=== PATIENT | female | born 1970 | race Caucasian/White ===

== ENCOUNTER → 2020-07-19 14:29 | Outpatient (CLI) | payer BC, SELFPAY ==
--- NOTE | ~2020-07-19 | MM_ITS ---
EXAMINATION: MM screening [facility] BI w chinmay HISTORY: Screening TECHNIQUE: Craniocaudal and mediolateral oblique 3-D tomosynthesis images were obtained and synthetic 2-D images were generated. CAD analysis was submitted and interpreted. COMPARISON: Comparison to multiple prior studies sequentially, with oldest reviewed study dated 03/06. BREAST PARENCHYMAL COMPOSITION: There are scattered areas of fibroglandular density. FINDINGS: There is no evidence of suspicious mass, calcification, or architectural distortion to sugg est malignancy in either breast. There has been no suspicious interval change. IMPRESSION: 1. No mammographic evidence of malignancy. 2. Recommend routine screening mammography in one year. BI-RADS Category 1: Negative Reviewed, dictated and finalized at location A.
== END ==
PROVIDERS: Visit Provider Nurse Practitioner
DX: Z12.31 Encounter for screening mammogram for malignant neoplasm of breast (principal)
CPT/HCPCS: 77063; 77067

== ENCOUNTER → 2021-07-30 17:41 | Outpatient (CLI) | payer OTHER, SELFPAY ==
--- NOTE | ~2021-07-30 | MM_ITS ---
EXAMINATION: MM screening [facility] BI w chinmay HISTORY: Screening TECHNIQUE: Craniocaudal and mediolateral oblique 3-D tomosynthesis images were obtained and synthetic 2-D images were generated. CAD analysis was submitted and interpreted. COMPARISON: Comparison to multiple prior studies sequentially, with oldest reviewed study dated 03/06. BREAST PARENCHYMAL COMPOSITION: There are scattered areas of fibroglandular density. FINDINGS: There is no evidence of suspicious mass, calcification, or architectural distortion to sugg est malignancy in either breast. There has been no suspicious interval change. IMPRESSION: 1. No mammographic evidence of malignancy. 2. Recommend routine screening mammography in one year. BI-RADS Category 1: Negative Reviewed, dictated and finalized at location A.
== END ==
PROVIDERS: Visit Provider Nurse Practitioner
DX: Z12.31 Encounter for screening mammogram for malignant neoplasm of breast (principal)
CPT/HCPCS: 77063; 77067

== ENCOUNTER → 2021-12-03 08:45 | Outpatient (CLI) | payer BC, SELFPAY ==
--- NOTE | ~2021-12-03 | MR_ITS ---
EXAMINATION: MR knee LT wo con DATE: 12/03/2021 09:46 INDICATION: Lateral left knee pain radiating up the leg TECHNIQUE: Magnetic resonance imaging (MRI) of the left knee was performed without intravenous contra st. Sequences included coronal PD-weighted FSE, coronal PD-weighted FS FSE, sagittal T2-weighted FSE , sagittal PD-weighted FS FSE and axial PD weighted fat saturated FSE. COMPARISON: None. FINDINGS: Medial compartment: Medial meniscus is normal. Articular cartilage is normal. Lateral compartment: Small horizontal tear at the body of the lateral meniscus extending to the articular surface near the inner free edge and without definitive extension beyond the inner third of the meniscus. Articular c artilage is normal. Patellofemoral compartment: Deep chondral fissuring involving greater than 50% the cartilage thickness but without degenerative s ubchondral changes at the medial patellar facet, apical ridge and medial side of the lateral facet. D eep chondral ulceration with underlying mild cortical irregularity and subarticular marrow signal saurav nges at the inferior aspect of the medial trochlea and without degenerative subchondral changes at th e trochlear groove and medial margin of the lateral trochlea. Ligaments and tendons: Posterior cruciate ligament is normal. There are couple small likely intrasubstance ganglion cysts ex tending lateral side intact. Linear low signal intensity ligament fibers of the anterior cruciate lig ament follows a normal course relative to Blumensaat line with no evident ligament tear. Mild edema along the superficial margin of the otherwise normal-appearing proximal medial collateral ligament wh ich could be seen with low-grade sprain. The fibular collateral ligament complex is normal. Small ent hesopathic ossification in the distal aspect of the otherwise normal appearing patellar tendon. Quadr iceps tendon is normal. The visualized medial and lateral hamstring tendons as well as the iliotibial band are normal. Fluid: Physiologic amount of fluid in the joint space. No loose osteochondral bodies identified. There is a multilobulated ganglion cyst at the deep popliteal fossa which measures 3.2 cm craniocaudally and 10 x 14 mm in maximal orthogonal dimensions. Osseous/other: Normal marrow signal aside from the previous noted region of subarticular increased fluid signal at t he medial trochlea. No fracture or pathologic marrow replacing process. IMPRESSION: 1. Small longitudinal horizontal tear involving the inner third of the lateral meniscal body. 2. 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 3. Small intrasubstance ganglion cysts along the otherwise intact appearing anterior cruciate ligamen t. 4. Larger multilobulated ganglion cyst at the deep aspect of the popliteal fossa Reviewed, dictated and finalized at location A. LLMENT NURSE IMPRESSION: 1. Small longitudinal horizontal tear involving the inner third of the lateral meniscal body. 2. 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 3. Small intrasubstance ganglion cysts along the otherwise intact appearing ant erior cruciate ligament. 4. Larger multilobulated ganglion cyst at the deep aspect of the popliteal daphney a
== END ==
PROVIDERS: PCP Nurse Practitioner; Visit Provider Orthopaedic Surgery
DX: M25.562 Pain in left knee (principal); S83.282A Other tear of lateral meniscus, current injury, left knee, initial encounter; M17.12 Unilateral primary osteoarthritis, left knee; M94.262 Chondromalacia, left knee; M67.462 Ganglion, left knee
CPT/HCPCS: 73721

== ENCOUNTER 2022-01-08 00:30 | Day surgery (SDC) | payer BC, SELFPAY ==
[2021-12-31 11:18] VITALS: BMI 25.7
--- NOTE | 2021-12-31 11:30 | PC.NURSE ---
Report to the Outpatient Waiting Room, entrance under the green pavilion located off [facility], at time 1200 on date 01/08/22. OR Time: 1400. - You will be asked a series of questions to screen for COVID 19 for your protection. - A mask is required within the hospital. - No visitors are allowed at this time. Preoperative COVID Testing Requirements: No COVID Test needed if: (proof is required; if not received patient will have Rapid Test prior to entry) - Patient has received COVID Vaccine at least 14 days prior to procedure date or - Patient has positive COVID test result within last 90 days of surgery date. COVID Test needed if above criteria is not met Patients may have clear liquids (water, carbonated beverages, clear teas, apple juice) until 3 hours prior to surgery with a maximum of 20 ounces. - No food from midnight until time of surgery Take the following medications with a SIP of water the morning of surgery: NONE Medications to discontinue per physician: VITAMINS/SUPPLEMENTS Date to take last dose: 01/04/22 Please no make-up, nail japanese, hairspray, perfume, deodorant, or body powder the day of surgery. No jewelry (including any body piercings) or valuables the day of surgery, leave them at home. Please take a shower or bath the night before, or the morning of, surgery with an antibacterial soap. Wear comfortable, loose fitting clothing. - Jewelry must be removed prior to entering the operating room. Rings and piercings that are not removed may be cut off. - The hospital will not accept responsibility for valuables. - Please leave all valuables, including medications, at home the day of surgery. If you are going home after surgery, a licensed patient transportation driver must drive you home. - NO public transportation without another adult. - We recommend that an adult stay with you for 24 hours following discharge. - We also recommend that you do not drive, make important decision, drink alcoholic beverages, or take any drugs that were not prescribed by your health care provider for at least 24 hours after your discharge time. Follow any additional instructions given to you from your surgeon. Telephone instructions given to DENI GONSALVES and asked if any additional questions and then verbalized understanding. Patient advised to call surgeon office or pre surgery nurse liaison [phone] if any additional questions.
[2022-01-08] VITALS (8 sets, daily range): BP systolic 83–117; BP diastolic 51–75; PULSE 61–79; RESP 12–20; TEMP 36.2–36.9; O2SAT 97–100
--- NOTE | 2022-01-08 07:48 | WPDHPUPDATE1 ---
History and Physical Update Update Date/Time: 01/08/22 07:48 History and Physical has been reviewed, including an updated exam of the patient. There are NO changes in the patient's condition. Risks, benefits, and alternatives have been discussed and questions answered. Patient agrees to proceed with procedure.
[2022-01-08] MEDS: ACETAMINOPHEN 500 MG TABLET 1000 MG PO (10:26)
[2022-01-08] MEDS: CELECOXIB 200 MG CAPSULE PO (10:28)
[2022-01-08] MEDS: LACTATED RINGERS 1,000 ML 30 ML IV CONT ×2 (10:40→12:35)
--- NOTE | 2022-01-08 11:06 | WPDANESEPPF ---
Anes - Initial Pre Proc Eval Procedure: Operation Date: 01/08/22 14:00 Proposed Procedures p Left Knee Arthroscopy - Sadiq James MD Date/Time: 01/08/22 11:06 Surgeon: Sadiq James MD Pre Op Diagnosis: left knee lateral meniscus tear Patient Data Age: 51 Gender: F Height: 1.64 m Weight: 70.1 kg Last Vital Signs Temp 98.4 F 01/08/22 09:53 Pulse 71 01/08/22 09:53 Resp 20 01/08/22 09:53 BP 111/75 01/08/22 09:53 Pulse Ox 98 01/08/22 09:53 Allergies Allergy/AdvReac Type Severity Reaction Status Date / Time Sulfa (Sulfonamide Allergy Severe Hives Verified 01/08/22 10:24 Antibiotics) Home Medications Medication Instructions Recorded Confirmed Type biotin 10 mg tablet 10 mg PO DAILY 11/23/21 01/08/22 History cholecalciferol (vitamin D3) 125 125 mcg PO DAILY 11/23/21 01/08/22 History mcg (5,000 unit) capsule omega 5-utj-tjc-fish oil 300 1 cap PO DAILY 11/23/21 01/08/22 History mg-1,000 mg capsule vitamin B complex 1 tablet PO DAILY 11/23/21 01/08/22 History Patient hx anesthesia problems: none Family hx anesthesia problems: none Results Review: All pre-operative results and documents have been reviewed as part of the pre-operative evaluation. FORMERLY [facility] Past Medical History Medical History Left hip pain Left knee pain Family History Family History Mother Hypertension Family history of elevated blood lipids Other Cerebrovascular accident Family history of arthritis Social History Social History (Updated 12/13/21 @ 11:41 by Polly Royal MA) Smoking status: Never smoker Alcohol intake: never Substance use: never Substance use type: does not use Living arrangements: with family Gender identity (if verbalized by the patient): Female Spiritual care concerns: No Anes - Eval Final PreProcedure Day of Procedure 01/08/22 11:06 Patient weight: normal Heart: regular rate and rhythm Lungs: clear to auscultation Airway: Mallampati scale class II Neurological: alert and oriented Last oral intake: >/= 8 hours ASA classification: II Emergent: no Anesthetic plan: proceed Anesthesia type and monitoring: general LMA and standard monitoring Results Review: All pre-operative results and documents have been reviewed as part of the pre-operative evaluation. Informed Consent: The patient's anesthetic plan and its attendant risks and benefits were discussed with the patient/family/POA. Questions were solicited and answers provided to the satisfaction of the patient/family/POA.
[2022-01-08] MEDS: ceFAZolin 2 GM/D5W 50 ML 2 GM/50 ML BAG IVPB (11:34)
[2022-01-08] MEDS: BUPIVACAINE HCL 0.5% PF 30 ML VIAL INFILTRATE (11:51)
--- NOTE | 2022-02-04 13:09 | P.OP_ITS ---
Procedure Note - Detailed Date of Procedure 02/04/22 Pre-op Diagnosis left knee lateral meniscus tear Post-op Diagnosis Same Procedure Performed LEFT KNEE SCOPE Surgeon Sadiq James MD Anesthesia General Description of Procedure PATIENT WAS TAKEN TO THE OR. LEFT LEG WAS PREPPED AND DRAPED STERILE. TROCARS WE RE PLACED IN THE USUAL FASHION. CAMERA WAS INTRODUCED. THERE WAS MODERATE CHONDROMALACIA TO THE PATELLA FEMORAL JOINT. THERE WAS A LOT OF SYNOVITIS IN ALL COMPARTMENTS. THE MEDIAL COMPARTMENT SHOWED NO CHONDROMALACIA TO THE MEDIAL FEMORAL CONDYLE OR PLATEAU. THERE WAS NO MEDIAL MENISCUS TEAR. THE ACL WAS INTACT. THE LATERAL MENISCUS WAS TORN AT THE MID SUBSTANCE. THE TEAR WAS RESECTED. THE LATERAL COMPARTMENT HAD GRADE 2 CHONDROMALACIA AT THE LATERAL PLATEAU. CHONDROPLASTY WAS PREFORMED. A SYNOVECTOMY WAS PREFORMED WELL. THE PATELLO FEMORAL JOINT UNDERWENT CHONDROPLASTY OVER THE PATELLA AND TROCHLEA. THERE WAS GRADE 2 CHONDROMALACIA IN MOST OF THE TROCHLEA AND PART OF THE PATELLA. SYNOVECTOMY WAS PREFORMED IN THE SUPERIOR MEDIAL COMPARTMENT. THE WOUNDS WERE APPROXIMATED WITH 4.0 NYLON. STERILE DRESSING WAS APPLIED. PATIENT WAS EXTUBATED. Estimated Blood Loss -10.0 Complications No immediate complications Condition Stable Disposition PACU
== END 2022-01-08 14:55 | disposition home or self-care (01) ==
PROVIDERS: PCP Nurse Practitioner; Visit Provider Orthopaedic Surgery
PROC: (CPT 29870; principal; 2022-01-08 14:00)
DX: M23.362 Other meniscus derangements, other lateral meniscus, left knee (principal); M65.862 Other synovitis and tenosynovitis, left lower leg; M22.42 Chondromalacia patellae, left knee
CPT/HCPCS: 29881; A9270; J0690; J1100; J2250; J2405; J2704; J7120

== ENCOUNTER → 2022-10-14 11:08 | Outpatient (CLI) | payer BC, SELFPAY ==
--- NOTE | ~2022-10-14 | DEXA_ITS ---
Bone Density Report Name: DENI GONSALVES Age: 52 Sex: Female Ethnicity: White Date of : 1970 Indication: postmenopausal; screening for osteoporosis; asthma or emphysema; Referring Provider: Josiah, Leigh Ann Study: Bone densitometry was performed. Exam Date: October 14, 2022 Accession number: [id number] Bone Density: Region BMD T-score Z-score Classification AP Spine (L1-L4) 1.151 0.9 1.9 Normal Femoral Neck (Left) 0.887 0.3 1.3 Normal Total Hip (Left) 1.036 0.8 1.4 Normal Femoral Neck (Right) 0.939 0.8 1.8 Normal Total Hip (Right) 1.035 0.8 1.4 Normal Total Hip Mean 1.036 0.8 1.4 Normal World Health Organization criteria for BMD impression classify patients as: Normal (T-score at or above -1.0), Osteopenia (T-score between -1.0 and -2.5), or Osteoporosis (T-score at or below -2.5). 10-year Fracture Risk: FRAX not reported because: All T-scores for Spine Total, Hip Total, Femoral Neck at or above -1.0 Clinical Information Provided by Patient: Has used the following medications: Vitamin D Has the following medical conditions: Asthma or Emphysema Patient maximum height was 64.5 Menopause Age: 50 Drinks caffeinated beverages Onset of menses at age 15 Number of children 1 Impression: The patient has normal bone mass. Discussion: BONE DENSITY IS ABOVE THE MINIMUM DESIRABLE LEVEL AT ALL SKELETAL SITES TESTED. This patient?s bone mineral density is above the minimum desirable level (T-score -1.0 or better) at all sites measured. The patient should follow a healthful lifestyle (good nutrition with adequate calcium and vitamin D, and appropriate weight-bearing exercise). Follow-Up: Consider repeating this study in 5 years or sooner if there is some new clinical indication. Reported by: [facility] on 10/14/2022 11:42:00 AM. Reviewed, dictated and finalized at location ABrian HERNANDEZ
--- NOTE | ~2022-10-14 | MM_ITS ---
EXAMINATION: MM screening [facility] BI w chinmay HISTORY: Screening mammogram TECHNIQUE: Craniocaudal and mediolateral oblique 3-D tomosynthesis images were obtained and synthetic 2-D images were generated. CAD analysis was submitted and interpreted. COMPARISON: 07/30/2021, 07/19/2020, 04/27/2019 BREAST PARENCHYMAL COMPOSITION: There are scattered areas of fibroglandular density. FINDINGS: No suspicious mass, calcification, or architectural distortion are identified in either rey ast to suggest malignancy. There has been no suspicious interval change. IMPRESSION: 1. No mammographic evidence of malignancy. 2. Recommend routine screening mammography in one year. BI-RADS Category 1: Negative Reviewed, dictated and finalized at location A. AGE CLERK
== END ==
PROVIDERS: PCP Nurse Practitioner; Visit Provider Nurse Practitioner
DX: Z12.31 Encounter for screening mammogram for malignant neoplasm of breast (principal); Z78.0 Asymptomatic menopausal state; Z13.820 Encounter for screening for osteoporosis
CPT/HCPCS: 77063; 77067; 77080

== ENCOUNTER 2023-10-08 15:20 | Outpatient (RCR) | payer BC, SELFPAY ==
--- NOTE | 2023-10-08 16:46 | PTOPEVAL1 ---
Assessment and note entered by Lázaro Longo, PT, DPT Evaluation Information Assessment Status Evaluation Diagnosis R shoulder pain Onset 2 months Subjective Information Pt states she has had ongoing shoulder pain for a while, she states a couple of weeks ago it got so bad that she almost went to the ER for her pain. She states since the time she reached out to her doctor and got her, her shoulder is doing much better. She states her shoulder primarily hurts when reaching across her body, overhead, and out to the side. She states she exercises regularly. She states she was initally unable to sleep d/t pain, she states she is having no issues now. She states she has a special needs daughter and could have aggivated it while assisting with bed mobility. Reported Pain Level Pain Score 3: Self Report These treatments will address the objective and functional deficits as defined above. The patient will be advanced safely and appropriately in order for the patient to progress towards his/her prior level of function. Additional exercises will be introduced and as well as a comprehensive home exercise program upon discharge, if needed, ?to ensure carryover of functional gains achieved in the clinic. This treatment plan has been reviewed and agreement upon by the patient.
--- NOTE | 2023-10-08 16:46 | PTOPEVAL1 ---
Assessment and note entered by Lázaro Longo, PT, DPT Evaluation Information Assessment Status Evaluation Diagnosis R shoulder pain Onset 2 months Subjective Information Pt states she has had ongoing shoulder pain for a while, she states a couple of weeks ago it got so bad that she almost went to the ER for her pain. She states since the time she reached out to her doctor and got her, her shoulder is doing much better. She states her shoulder primarily hurts when reaching across her body, overhead, and out to the side. She states she exercises regularly. She states she was initially unable to sleep d/t pain, she states she is having no issues now. She states she has a special needs daughter and could have aggravated it while assisting with bed mobility. Reported Pain Level Pain Score 3: Self Report Assessment PT Clinical Summary Beverly presents to therapy today for her initial evaluation with a diagnosis of R shoulder pain. Today she demonstrates good shoulder ROM that is equal cruz and good shoulder strength, there is a slight decrease in her R shoulder compared to L. She reports no limitations d/t pain at this time. She was issued an HEP this date and would like to try this out for a month and follow up if needed. Plan of Care Interventions Manual Therapy,Neuro Re-education,Therapeutic Activities,Therapeutic Exercise PT Services Indicated Yes Treatment Frequency and follow up in a month Duration These treatments will address the objective and functional deficits as defined above. The patient will be advanced safely and appropriately in order for the patient to progress towards his/her prior level of function. Additional exercises will be introduced and as well as a comprehensive home exercise program upon discharge, if needed, ?to ensure carryover of functional gains achieved in the clinic. This treatment plan has been reviewed and agreement upon by the patient.
--- NOTE | 2023-11-12 08:22 | PCPTNOTE ---
Called and spoke with pt, states she is doing well but would like to wait another month before being discharged.
--- NOTE | 2023-12-26 11:16 | PTOPDC ---
Assessment and note entered by Lázaro Longo, PT, DPT Evaluation Information Assessment Status Discharge - Pt Not Present Diagnosis R shoulder pain Onset 2 months Subjective Information Called and spoke with pt. She states her shoulder is doing better but still has some intermittent pain. She states the exercises have not changed her pain much. Assessment PT Clinical Summary Beevrly was evaluated on 10/08/23 and did not complete any subsequent treatment. She does not wish to continue with formal therapy and will be discharged at this time.
== END 2023-12-26 13:47 | disposition home or self-care (01) ==
LOC: ANHGOSHPT 15:20
PROVIDERS: PCP Nurse Practitioner; Visit Provider Nurse Practitioner
DX: M25.511 Pain in right shoulder (principal)
CPT/HCPCS: 97110; 97161

== ENCOUNTER → 2023-10-15 13:26 | Outpatient (CLI) | payer BC, SELFPAY ==
--- NOTE | ~2023-10-15 | MM_ITS ---
EXAMINATION: MM screening [facility] BI w chinmay HISTORY: Screening mammogram TECHNIQUE: Craniocaudal and mediolateral oblique 3-D tomosynthesis images were obtained and synthetic 2-D images were generated. CAD analysis was submitted and interpreted. COMPARISON: 10/06/2022, 07/30/2021 bilateral screening mammogram examinations BREAST PARENCHYMAL COMPOSITION: There are scattered areas of fibroglandular density. FINDINGS: There is no evidence of suspicious mass, calcification, or architectural distortion to sugg est malignancy in either breast. There has been no suspicious interval change. IMPRESSION: 1. No mammographic evidence of malignancy. 2. Recommend routine screening mammography in one year. BI-RADS Category 1: Negative Reviewed, dictated and finalized at location A. HBOOK MAKER
== END ==
PROVIDERS: PCP Nurse Practitioner; Visit Provider Nurse Practitioner
DX: Z12.31 Encounter for screening mammogram for malignant neoplasm of breast (principal)
CPT/HCPCS: 77063; 77067

== ENCOUNTER 2024-03-04 15:12 | Outpatient (CLI) | payer BC, SELFPAY ==
--- NOTE | ~2024-03-04 | XR_ITS ---
EXAM: XR hand RT min 3V DATE: 03/04/2024 15:22 HISTORY: RIGHT HAND PAIN/NONTRAUMA SWELLING...OCCASIONAL . COMPARISON: None available. FINDINGS: Normal mineralization. No fracture or dislocation. No lytic or blastic lesion. Mild degene rative changes in the interphalangeal joints of the thumb and fingers and several MCP joints. No eros ion or periosteal change. Soft tissues within normal limits. IMPRESSION: Mild polyarticular osteoarthritis of the hand. Reviewed, dictated and finalized at location K.
== END 2024-03-04 15:13 | disposition home or self-care (01) ==
PROVIDERS: PCP Nurse Practitioner; Visit Provider Nurse Practitioner
DX: M79.641 Pain in right hand (principal); M19.041 Primary osteoarthritis, right hand
CPT/HCPCS: 73130

== ENCOUNTER 2024-11-02 11:22 | Outpatient (CLI) | payer BC, SELFPAY ==
--- NOTE | ~2024-11-02 | MM_ITS ---
EXAMINATION: MM screening [facility] BI w chinmay HISTORY: Screening TECHNIQUE: Craniocaudal and mediolateral oblique 3-D tomosynthesis images were obtained and synthetic 2-D images were generated. CAD analysis was submitted and interpreted. COMPARISON: Comparison to multiple prior studies sequentially, with oldest reviewed study dated 04/07. BREAST PARENCHYMAL COMPOSITION: Not dense: There are scattered areas of fibroglandular density. FINDINGS: There is no evidence of suspicious mass, calcification, or architectural distortion to sugg est malignancy in either breast. There has been no suspicious interval change. IMPRESSION: 1. No mammographic evidence of malignancy. 2. Recommend routine screening mammography in one year. BI-RADS Category 1: Negative Reviewed, dictated and finalized at location B. TIME RECEPTIONIST
== END 2024-11-02 11:23 | disposition home or self-care (01) ==
PROVIDERS: PCP Nurse Practitioner; Visit Provider Nurse Practitioner
DX: Z12.31 Encounter for screening mammogram for malignant neoplasm of breast (principal)
CPT/HCPCS: 77063; 77067

== ENCOUNTER 2024-12-29 11:19 | Emergency (ER) | payer BC, SELFPAY ==
--- NOTE | ~2024-12-29 | CT_ITS ---
EXAMINATION: CT abdomen pelvis wo con DATE: 12/29/2024 14:28 INDICATION: Right flank pain. TECHNIQUE: Computed tomography (CT) of the abdomen and pelvis was performed without intravenous contr ast. Automated exposure control and iterative reconstruction technique were employed. The dose-length product was 268.92 mGy-cm. COMPARISON: CT abdomen and pelvis 05/09/2018 FINDINGS: The visualized portions of the lung bases are clear without pneumonia or pleural effusion. The heart size is normal. No pericardial effusion. The liver, gallbladder, spleen, pancreas, adrenal glands, and kidneys are normal. There is no urolithiasis. There is diverticulosis of the colon withou t evidence of diverticulitis. The appendix is normal. There are no dilated loops of bowel. There are no pathologically enlarged lymph nodes. There is no free intraperitoneal fluid. There is mild lumbar spondylosis. IMPRESSION: 1. No etiology for the patient's symptoms. Reviewed, dictated and finalized at location A. LAB TECHNICIAN
[2024-12-29 11:25] VITALS: BP 136/78; PULSE 79; RESP 18; TEMP 36.4; O2SAT 99
[2024-12-29 11:42] LABS: BEDSIDEPREGUCG Negative (Negative)
[2024-12-29 11:50] LABS: Add Urine Microscopic? NO; Appearance Urine Clear (Clear); Bilirubin Urine Negative (Negative); Blood Urine Negative (Negative); Color Urine Yellow (Yellow); Glucose Urine UA Negative (Negative); Ketones Urine Negative (Negative); Leukocyte Esterase Ur Negative LEU/UL (Negative); Nitrate Urine Negative (Negative); Protein Urine Negative (Negative); Specific Grav Ur 1.006 (1.001-1.035); Urobilinogen Urine 0.2 mg/dL (<2.0)
[2024-12-29 11:53] LABS: Basophils Absolute Auto 0.1 K/mm3 (0.0-0.1); Basophils Percent Auto 0.6 % (0.2-1.2); Eosinophils Absolute Auto 0.2 K/mm3 (0-0.3); Eosinophils Percent Auto 1.9 % (0-4.4); Hematocrit 42.5 % (37.0-47.0); Hemoglobin 14.2 g/dL (12.0-15.0); Immature Granulocyte Absolute 0.01 K/mm3 (0.00-0.031); Immature Granulocyte Percent A 0.1 % (0-0.5); Lymphocytes Absolute Auto 2.65 K/mm3 (0.9-3.2); Lymphocytes Percent Auto 33.7 % (18.3-44.2); Mean Corpuscular HGB Conc 33.4 g/dl (32-36); Mean Corpuscular Hemoglobin 31.7 pg (26-34); Mean Corpuscular Volume 94.9 fl (80-100); Mean Platelet Volume 10.5 fl (7.4-10.4); Monocytes Absolute Auto 0.6 K/mm3 (0.1-0.6); Monocytes Percent Auto 7.9 % (2.6-8.5); Neutrophils Absolute Auto 4.4 K/mm3 (1.3-6.7); Neutrophils Percent Auto 55.8 % (45.5-73.1); Platelet Count Result 293 k/mm3 (150-375); Red Blood Count 4.48 M/mm3 (4.2-5.4); Red Cell Distribution Width 11.7 % (11.5-14.5); White Blood Count 7.9 K/mm3 (4.5-10.0)
[2024-12-29 12:01] LABS: Alanine Aminotransferase 41 U/L (6-35); Albumin Level 4.7 g/dL (3.5-5.1); Alkaline Phosphatase 63 U/L (38-126); Anion Gap 10 mmol/L (4-12); Aspartate Amino Transferase 34 U/L (14-36); Bilirubin,Total 0.9 mg/dL (0.2-1.3); Blood Urea Nitrogen 21 mg/dL (7-17); Calcium 9.4 mg/dL (8.4-10.2); Carbon Dioxide 28 mmol/L (22-30); Chloride 100 mmol/L (98-107); Estimated CRCL calculation 71 ml/min; Estimated Glomerular Filt Rate > 60; Glucose 85 mg/dL (65-110); Potassium 3.6 mmol/L (3.4-5.0); Sodium 138 mmol/L (137-145)
--- OUTSIDE RECORDS SUMMARY | 2024-12-29 12:05 | XMS_ITS | Clinical Summary ---
Author Organization [facility] Address [address] [place] [address] Care Team Providers Care Dry Charge Process Attendant Name Role Phone Pema Hernández MD Primary Care Provider + Allergies Active Allergy Reactions Criticality Noted Date Comments Sulfa Antibiotics Rash Medium 09/05/2017 Medications Probiotic Product (PROBIOTIC ADVANCED OR) Take 1 tablet by mouth daily. Active vitamin B-12 500 MCG tablet Take 1 tablet (500 mcg total) by mouth daily. Active fish oil 1000 MG Cap capsule Take 1 capsule (1,000 mg total) by mouth daily. Active Cholecalciferol (VITAMIN D) 125 MCG (5000 UT) Cap Active ondansetron (ZOFRAN) 4 MG tabletIndicatio ns:Nausea Take 1 tablet (4 mg total) by mouth every 8 (eight) hours as needed for Nausea. 20 tablet 04/26/2024 Active Active Problems Problem Noted Date Diagnosed Date Osteoarthritis of right hand , unspecified osteoarthritis type 03/11/2024 Shoulder pain, right 09/18/2023 Tear of lateral cartilage or meniscus of knee, c urrent 08/30/2021 Vitamin D deficiency 02/28/2021 B12 deficiency 02/28/2021 Hyperlipidemia 02/28/2021 Diverticulitis of large inte chaim without perforation or abscess without bleeding 06/08/2018 Resolved Problems Problem Noted Date Diagnosed Date Resolved Date Hyperlipidemia, unspecified hyperlipidemia type 02/28/2021 08/15/2022 Diverticulitis 06/03/2012 03/11/2024 Overview (07/11/2022): Overview: 02/09/2016: CT abd/acute diverticulitis of ascending colon, wbc 11.7, hgb 13.9, plt 313, cmp normal, ua negative 02/16/2016 hgb 14, wbc 5.8. plt 371 CT 06/2017 reivewed diverticulitis of DC withoutnperforation or abscess, ER notes Afebrile, wbc 12.9 normal cbc, bmp otherwise, UA 16-20 HPF with LE, cipro/flagul given, dx: diverticulitis Encounters Date Type Department Care Team Description 12/29/2024 Telephone [facility] Family Medicine - [place] [address] [facility] [address] [place] [address] Pema Hernández MD Back Pain from Last 3 Months Immunizations Name Administration Dates Next Due Fluzone (IIV3, Trivalent, 0. 5 ML Prefilled Syringe) 09/02/2024 Fluzone 6 Months+ Quad (0.5 mL Prefilled Syringe) 09/18/2023,08/15/2022 Fluzone Intradermal Quad (IIV4) 11/22/2016 Influenza Adult (Generic) 09/02/2021,,08/19/2019,2017,09/05/2017,11/22/2016,09/02/2015,1 11/29/2013 PFIZER COVID-19 (ORIGINAL FORMULATION, PURPLE CAP) mRNA, LNP-S, PF, 30 MCG/0.3 ML DOSE 01/30/2021,01/09/2021 Tdap (Adacel) 04/29/2024 Family History Medical History Relation Comments Stroke Maternal Grandmother Arthritis Mother Hypertension Mother Diabetes Sister Hypertension Sister Relation Status Comments Father Alive Maternal Grandmother Mother Alive Sister Social History Tobacco Use Types Packs/Day Years Used Date Smoking Tobacco: Never Passive Smoke Exposure: Past Smokeless Tobacco: Never Tobacco Cessation:Counseling Given: No Comments:The provider can provide you with more information about quitting. Alcohol Use Standard Drinks/Week Comments Not Currently 0 (1 standard drink = 0.6 oz pur e alcohol) PHQ-2 Answer Date Recorded Patient Health Questionnaire-2 Score 0 09/02/2024 Comments No Sex and Gender Information Value Date Recorded Sex Assigned at Not on file Legal Sex Female 4:37 PM CDT Gender Identity Not on file Sexual Orientation Not on file Last Filed Vital Signs Vital Sign Reading Time Taken Comments Blood Pressure 120/70 09/02/2024 3:07 PM CDT Pulse 87 09/02/2024 3:07 PM CDT Temperature 36.4 C (97.6 F) 09/02/2024 3:07 PM CDT Respiratory Rate 16 04/26/2024 4:02 PM CDT Oxygen Saturation 97% 09/02/2024 3:07 PM CDT Inhaled Oxygen Concentration - - Weight 66.9 kg (147 lb 6.4 oz) 09/02/2024 3:07 P M CDT Height 162.6 cm (5' 4 ) 09/02/2024 3:07 PM CDT Body Mass Index 25.3 09/02/2024 3:07 PM CDT Plan of Treatment Health Maintenance Due Date Last Done Comments Colorectal Cancer Screening Colonoscopy (10 Years) 1969 Hepatitis C 1987 Hepatitis B Vaccines (1 of 3 - 19+ 3-dose series) 1988 Cervical Cancer Screening Pap with HPV Testing (Age 30 to 64) Every 5 Years 1999 Zoster Vaccines (1 of 2) 2019 Cervical Cancer Screening Pap Smear (Age 30 to 64) Every 3 Years 06/24/2023 06/24/2020 Cervical Cancer Screening with HPV 06/24/2023 COVID-19 Vaccine ( season) 2024 01/30/2021, 01/09/2021 Annual Physical 09/18/2024 09/18/2023, 07/19, 02/28/2021 Mammogram Screening 10/14/2024 10/14/2022 PHQ-2 (Physician [place]) 11/17/2024 09/02/2024 DTaP, Tdap and Td Vaccines (2 - Td or Tdap) 04/29/2034 04/29/2024 Influenza Adult Completed 09/02/2024, 110 12/2022, 08/15/2022, Additional history exists Meningococcal B Vaccine Aged Out No l onger eligible based on patient's age to complete this topic Meningococcal Vaccine Aged Out No audrey irasema eligible based on patient's age to complete this topic Pneumococcal Vaccine: Pediatrics (0 to 5 Years) and At-Risk Patients (6 to 64 Years) Aged Out No longer eligible based on patient's age to complete this topic RSV Immunizations Under 20 Months Aged Out No longer eligible based on patient's age to complete this topic Procedures Procedure Name Priority Date/Time Associated Diagnosis Comments MAMMOGRAM GENERIC (SCAN ORDER) 10/14/2022 OUTSIDE CYTOPATH CERV/VAG INTERPRET (PAP) (SCAN ORDER) 06/24/2020 from Last 3 Months or Most Recently Relevant to Health Maintenance Results * MAMMOGRAM GENERIC (10/14/2022) Anatomical Region Laterality Modality Other 10/14/2022 [facility] Scanned SCANNING Final Resu lt * OUTSIDE CYTOPATH CERV/VAG INTERPRET (PAP) (06/24/2020) 06/24/2020 Narrative 06/24/2020 Ordered by an unspecified provider. us Documents Scanned SCANNING Final Result from Last 3 Months or Most Recently Relevant to Health Maintenance Insurance [facility] Care Teams Dry Charge Process Attendant Relationship Specialty Start Date End Date Krystowiak, Pema A, MD [address] [phone] PCP - General FAMILY PRACTICE 12/29/24
--- OUTSIDE RECORDS SUMMARY | 2024-12-29 12:05 | XMS_ITS | Clinical Summary ---
Author Organization [email or web address] Address [address] [place] [address] Care Team Providers Care Closing Coordinator Name Role Phone Gi Menezes MD Unavailable [phone] Corrie Howard APRN-[facility] Primary Care Provi randolph Source Comments [email or web address],non-owned Affiliates and Associated Physician Practices is amultiple site organization consisting of ambulatory clinics and hospital sitesin [place], [place], [place] and [place]. This disclosure is being madepursuant to the Care Everywhere program and may not contain all information available regarding this patient. Last updated 18.[email or web address] Allergies Active Allergy Reactions Criticality Noted Date Comments Sulfa Drugs Urticaria,Rash Medium 09/05/2017 Medications * Be aware that medications may not be up to date on this document. Alwaysverify current medications with the patient. Medication Sig Dispensed Refills Start Date End Date Status PROBIOTIC PRODUCT PO Take 1 tablet by mouth once daily Active Cholecalciferol (VITAMIN D-3) 125 MCG (5000 UT) Take 1 (one) tablet by mouth once daily Active Cobalamin Combinations (B12 FOLATE PO) Take 1,000 mcg by mouth once daily Active omega 3 (FISH OIL) 1200 MG capsule Take 800 mg by mouth once daily Brown Red Active Biotin 1000 MCG Take 1 (one) tablet by mouth once daily Active Active Problems Problem Noted Date Diagnosed Date Pain in joint, lower leg 08/30/2021 Tear of lateral cartilage or meniscus of knee, c urrent 08/30/2021 B12 deficiency 02/28/2021 Hyperlipidemia 02/28/2021 Vitamin D deficiency 02/28/2021 Diverticulitis of large inte chaim without perforation or abscess without bleeding 06/08/2018 Diverticulitis 06/03/2012 Overview (08/30/2021): Overview: 02/09/2016: CT abd/acute diverticulitis of ascending colon, wbc 11.7, hgb 13.9, plt 313, cmp normal, ua negative 02/16/2016 hgb 14, wbc 5.8. plt 371 CT 06/2017 reivewed diverticulitis of DC withoutnperforation or abscess, ER notes Afebrile, wbc 12.9 normal cbc, bmp otherwise, UA 16-20 HPF with LE, cipro/flagul given, dx: diverticulitis Immunizations Name Administration Dates Next Due FLU VACCINE QUAD IIV4 PF ID 11/22/2016 INFLUENZA VACCINE, QUADR. (F LUZONE; FLULAVAL; FLUARIX; AFLURIA QUADRIVALENT; 6MO+), 0.5 ML (IIV4) 09/05/2017 Family History Medical History Relation Name Comments None Known Brother None Known Father None Known Maternal Aunt None Known Maternal Grandfather None Known Maternal Grandmother None Known Maternal Uncle None Known Mother None Known Other None Known Paternal Aunt None Known Paternal Grandfather None Known Paternal Grandmother None Known Paternal Uncle None Known Sister Asthma Neg Hx CVA Neg Hx Cancer - Breast Neg Hx Cancer - Other Neg Hx Cancer - Skin, Melanoma Neg Hx Cancer - Skin, Non Melanoma Neg Hx Eczema Neg Hx Hemophilia Neg Hx Psoriasis Neg Hx Relation Name Status Comments Brother Father Maternal Aunt Maternal Grandfather Maternal Grandmother Maternal Uncle Mother Other Paternal Aunt Paternal Grandfather Paternal Grandmother Paternal Uncle Sister Social History Tobacco Use Types Packs/Day Years Used Date Smoking Tobacco: Never Smokeless Tobacco: Never Alcohol Use Standard Drinks/Week Comments No 0 (1 standard drink = 0.6 oz pur e alcohol) Sex and Gender Information Value Date Recorded Sex Assigned at Not on file Gender Identity Not on file Sexual Orientation Not on file Last Filed Vital Signs Vital Sign Reading Time Taken Comments Blood Pressure 130/72 03/24/2024 1:21 PM CDT Repeat BR=788/71 Pulse 59 03/24/2024 1:21 PM CDT Temperature 36.8 C (98.2 F) 03/24/2024 1:21 PM CDT Respiratory Rate 18 03/27/2022 12:2 5 PM CDT Oxygen Saturation 100% 03/24/2024 1:2 1 PM CDT Inhaled Oxygen Concentration - - Weight 65.2 kg (143 lb 12.8 oz) 03/24/2024 1:21 PM CDT Height 163.8 cm (5' 4.5 ) 03/24/2024 1: 21 PM CDT Body Mass Index 24.3 03/24/2024 1:21 PM CDT Plan of Treatment Upcoming Encounters Date Type Department Care Team (Late st Contact Info) Description 03/23/2025 11:30 AM CDT Office Visit [facility] - [facility] [address] [facility] [place] [id number] Jose-Bren Feng, CASINO CAGE SUPERVISOR-DIRECTOR OF EXHIBIT DEVELOPMENT [address] [place] [phone] Health Maintenance Due Date Last Done Comments COLOGUARD (AGES 45-75) - COLON CA SCREENING 1969 CT COLONOGRAPHY - COLON CA SCREENING 1969 FIT - COLON CA SCREENING 1969 FLEX SIG - COLON CA SCREENING 1969 PAP SMEAR 1969 HIV SCREENING 1984 HEPATITIS C SCREENING 07/12/1987 DTAP/TDAP/TD VACCINES (1 - Tdap) 1988 HEPATITIS B VACCINE (1 of 3 - 19+ 3-dose series) 1988 LIPID TESTING 03/19/2018 03/19/2013 PNEUMOCOCCAL VACCINE 50+ (1 of 1 - PCV) 2019 ZOSTER VACCINE (1 of 2) 2019 COVID-19 VACCINE (3 - season) 2024 01/30/2021, 01/09/2021 INFLUENZA VACCINE (#1) 2024 , 08/15/2022, 09/02/2021, Additional history exists MAMMOGRAM 10/14/2024 10/14/2022 DEPRESSION SCREENING 11/17/2024 COLON MONITORING 10/02/2028 10/02/2018, 10/02/2018 COLONOSCOPY - COLON CA SCREENING 10/02/2028 10/02/2018, 10/02/2018 Colorectal Cancer Screening 10/02/2028 HIB VACCINE Aged Out No longer eligi ble based on patient's age to complete this topic HPV VACCINE Aged Out No longer eligi ble based on patient's age to complete this topic MENINGOCOCCAL (Group B) VACCINE Aged Out No longer eligible based on patient's age to complete this topic MENINGOCOCCAL VACCINE Aged Out No audrey irasema eligible based on patient's age to complete this topic PNEUMOCOCCAL VACCINE Aged Out No long er eligible based on patient's age to complete this topic Goals Goal Patient Goal Type Associated Problems Recent Progress Patient-Stated? Author Safety General On track( 022 12:38 PM CDT) No Charlee Mcdonough, MARILYNN Note: Expected end date: Ongoing Interventions: Your nurse will assess your risk for falls/injury each visit Use appropriate and safe transfer methods Medication Management General On track( 024 1:29 PM CDT) Charlee Fisher, MARILYNN Note: Expected end date: Ongoing Interventions: Take all medications as prescribed Let your doctor know right away about any changes in your medications Procedures Procedure Name Priority Date/Time Associated Diagnosis Comments ENDOSCOPY, COLON, DIAGNOSTIC Routine 10/02/2018 8:35 AM STEEL POURER HELPER LIPID PROFILE Routine 03/19/2013 7:38 AM CDT from Last 3 Months or Most Recently Relevant to Health Maintenance Results * ENDOSCOPY, COLON, DIAGNOSTIC (10/02/2018 8:35 AM STEEL POURER HELPER) Report Endoscopy POC Endoscopy Department Report _ Patient Name: Beverly Bone Procedure Date: 10/02/2018 8:35 AM Date of : 1970 Classification: Outpatient Gender: Female _ Providers: Irene Madrigal MD Referring MD: Procedure: Colonoscopy Indications: Screening for colorectal malignant neoplasm, Incidental - Abdominal pain in the right lower quadrant Medications: Propofol per Anesthesia Description of Procedure: Pre-Anesthesia Assessment: - Prior to the procedure, a History and Physical was performed, and patient medications and allergies were reviewed. The patient's tolerance of previous anesthesia was also reviewed. The risks and benefits of the procedure and the sedation options and risks were discussed with the patient. All questions were answered, and informed consent was obtained. Prior Anticoagulants: The patient has taken no previous anticoagulant or antiplatelet agents. ASA Grade Assessment: II - A patient with mild systemic disease. After reviewing the risks and benefits, the patient was deemed in satisfactory condition to undergo the procedure. After I obtained informed consent, the scope was passed under direct vision. Throughout the procedure, the patient's blood pressure, pulse, and oxygen saturations were monitored continuously. The [id number] was introduced through the anus and advanced to the terminal ileum, with identification of the appendiceal orifice and IC valve. The colonoscopy was performed with ease. The patient tolerated the procedure well. The quality of the bowel preparation was evaluated using the BBPS ([place] Bowel Preparation Scale) with scores of: Right Colon = 3 (entire mucosa seen well with no residual staining, small fragments of stool or opaque liquid), Transverse Colon = 3 (entire mucosa seen well with no residual staining, small fragments of stool or opaque liquid) and Left Colon = 3 (entire mucosa seen well with no residual staining, small fragments of stool or opaque liquid). The total BBPS score equals 9. The quality of the bowel preparation was excellent. The terminal ileum, ileocecal valve, appendiceal orifice, and rectum were photographed. Findings: The perianal and digital rectal examinations were normal. Two sessile polyps were found in the ascending colon. The polyps were diminutive in size. These polyps were removed with a cold biopsy forceps. Resection and retrieval were complete. The terminal ileum appeared normal. Multiple small and large-mouthed diverticula were found in the entire colon. Non-bleeding internal hemorrhoids were found during retroflexion. The exam was otherwise without abnormality on direct and retroflexion views. Estimated Blood Loss: Estimated blood loss: none. Complications: No immediate complications. Impression: - Two diminutive polyps in the ascending colon, removed with a cold biopsy forceps. Resected and retrieved. - The examined portion of the ileum was normal. - Diverticulosis in the entire examined colon. - Non-bleeding internal hemorrhoids. - The examination was otherwise normal on direct and retroflexion views. Recommendation: - Discharge patient to home (ambulatory). - Await pathology results. - If the pathology report reveals adenomatous tissue, then repeat the colonoscopy for surveillance based on pathology results in 5 years if adenoma, 10 years if hyperplastic. - High fiber diet for the rest of the patient's life. - Continue present medications. - Patient has a contact number available for emergencies. The signs and symptoms of potential delayed complications were discussed with the patient. Return to normal activities tomorrow. Written discharge instructions were provided to the patient. - Patient has a contact number available for emergencies. - Return to normal activities tomorrow. Attending Participation: I personally performed the entire procedure. Procedure Code(s): --- Professional --- 54459, Colonoscopy, flexible; with biopsy, single or multiple Diagnosis Code(s): --- Professional --- Z12.11, Encounter for screening for malignant neoplasm of colon D12.2, Benign neoplasm of ascending colon K64.8, Other hemorrhoids K57.30, Diverticulosis of large intestine without perforation or abscess without bleeding CPT copyright 2016 [employer] [place] [employer]. All rights reserved. The codes documented in this report are preliminary and upon merchandise complaint adjuster review may be revised to meet current compliance requirements. ____ Irene Madrigal MD 10/02/2018 9:41:35 AM Note Initiated On: 10/02/2018 8:35 AM Number of Addenda: [address] [address] [facility] 10/02/2018 8:35 AM STEEL POURER HELPER Ted Campbell MD GI PROCEDURE ORDERAB LES [facility] * (ABNORMAL) LIPID PROFILE (03/19/2013 7:38 AM CDT) Cholesterol Total 194 125 - 200 mg/dL [facility] HDL 44(L) > OR = 46 mg/dL [facility]) Triglycerides 178(H) <150 mg/dL [facility] LDL Calculated 114 <130 mg/dL (calc) [facility] Comment: Desirable range <100 mg/dL for patients with CHD or diabetes and <70 mg/dL for diabetic patients with known heart disease. Chol/HDL Ratio 4.4 < OR = 5.0 (calc) [facility] Non HDL Cholesterol 150 mg/dL (calc) [facility] Comment: Target for non-HDL cholesterol is 30 mg/dL higher than LDL cholesterol target. Test Performed at: [facility] [id number] [place] [id number] DOROTEO EUGENE DO,MPH 03/19/2013 7:38 AM CDT 03/19/2013 7:41 AM CDT Gi Menezes MD LAB - CHEMISTRY ORD ERABLES [facility] ([facility]) from Last 3 Months or Most Recently Relevant to Health Maintenance Care Teams Closing Coordinator Relationship Specialty Start Date End Date Corrie Howard, CASINO CAGE SUPERVISOR-DIRECTOR OF EXHIBIT DEVELOPMENT [address] [place], [place] [id number] PCP - General 08/07/21 Gi Menezes MD [address] [place] [address] Obstetrics and Gynecology 04/11/21
--- OUTSIDE RECORDS SUMMARY | 2024-12-29 12:05 | XMS_ITS | Continuity of Care Document ---
Author Organization [facility] Address [address] [place] [address] [place] [address] Phone Care Team Providers Care Music Ministries Director Name Role Phone Nicanor Lopez MD Unavailable Unavailable Allergies, Adverse Reactions, Alerts Substance Reaction Status Criticality No Known Allergies Active No Inform ation Procedures Procedure Date OFFICE/OUTPATIENT VISIT, EST OFFICE/OUTPATIENT VISIT, EST OFFICE/OUTPATIENT VISIT, [facility] Advance Directives Directive Yes / No Effective Date File Name No Information Encounters Encounter Description Practice Location Reason(s) For Visit Diagnoses Date Provider Providers Copied on Encounter [facility], [address], [place], [place], [id number], [place] tel:[phone] [facility] No Information 4 John Vick. [address], [address] [place], [id number] , [place]. tel:[phone] Referring Provider: Pierre [address] [facility] [address], [place], [place], [id number]. tel:[phone] OFFICE/OUTPA TIENT VISIT, EST [facility], [address], [place], [place], [id number], [place] tel:[phone] [facility] palpitation (chief complaint)ba ck pain (chief complaint)ab dominal pain (chief complaint)kn ee pain (chief complaint) PalpitationsLumba goOther specified disorders of gallbladderPain in joint involving lower leg 4 John Vick. [address], [address], [place], [place], [id number] , [place]. tel:[phone] Referring Provider: Pierre [address], [place], [place], [id number]. tel:[phone] OFFICE/OUTPA TIENT VISIT, [facility], [address] [place], [place], [id number], [place] tel:[phone] [facility] back pain (chief complaint)kn ee pain (chief complaint)GI referal (chief complaint) Dietary surveillance and counselingAbdomin al PainLumbagoPain in joint involving lower leg 4 John Vick. [address] [facility] [address], [place], [place], [id number] , [place]. tel:[phone] Referring Provider: Pierre [address] [facility], [place], [place], [id number]. tel:[phone] OFFICE/OUTPA TIENT VISIT, [facility], [address] [place], [id number], [place] tel:[phone] [facility] palpitation (chief complaint)di veticulitis (chief complaint)martinez nd pain (chief complaint)sc apular pain (chief complaint)po addison IV (chief complaint) PalpitationsConta ct dermatitis and other eczema due to plants (except food)LumbagoDiver ticulitis of colon (without mention of hemorrhage) [address]. [address] [facility] [place], [place], [address] , [place]. tel:[phone] Family History Family Member Type Diagnosis Age At Onset Mother Problem (finding) Hypertension Father Problem (finding) Unknown Disease Sister Problem (finding) Alive and well Payers Payer name Insurance type Covered republican ID Authoriza tion(s) No Information Social History Type Description Quantity Date Captured Comments Sex Female Smoking Status No Information Chief Complaint And Reason For Visit No Information Plan Of Treatment Date Type Action Status Referral Ordered: MRI JOINT UPR EXTREM W/O DYE Left knee ordered Referral Ordered: NUC MED HIDA (HEPATOBILIARY) SCAN ordered Referral Ordered: US EXAM, ABDOM, COMPLETE ordered Referral Ordered: Physical Therapy (related to Lumbago) ordered Referral Ordered: Cardiology (related to Palpitations) ordered Referral Ordered: HAND XRAY, TWO VIEW ordered Referral Ordered: Referral: Cardiology. Evaluate and treat. ordered Referral Referred To: Physical Therapy Ordered: Referral: Physical Therapy. ordered History Of Present Illness Encounter Date Complaint History Of Prese nt Illness No Information Instructions Date Instruction Additional Infor dave Decrease caloric intake Related to Dietary surveillance counseling Dietary counseling Related to Di etary surveillance counseling Assessments Type Assessment Date No Information
--- OUTSIDE RECORDS SUMMARY | 2024-12-29 12:05 | XMS_ITS | Patient Health Summary ---
Author Organization [facility] Address [address] [place] [address] Care Team Providers Care Pl Sql Developer Name Role Phone Gi Menezes MD Unavailable [phone] Corrie Howard APRN-[facility] Primary Care Provi randolph Note from [facility],non-owned Affiliates and Associated Physician Practices is amultiple site organization consisting of ambulatory clinics and hospital sitesin [place], [place], [place] and [place]. This disclosure is being madepursuant to the Care Everywhere program and may not contain all information available regarding this patient. Last updated 18.[facility] Allergies * Sulfa Drugs(Urticaria,Rash) -Medium Criticality Medications * Be aware that medications may not be up to date on this document. Alwaysverify current medications with the patient. * PROBIOTIC PRODUCT PO Take 1 tablet by mouth once daily * Cholecalciferol (VITAMIN D-3) 125 MCG (5000 UT) Take 1 (one) tablet by mouth once daily * Cobalamin Combinations (B12 FOLATE PO) Take 1,000 mcg by mouth once daily * omega 3 (FISH OIL) 1200 MG capsule Take 800 mg by mouth once daily Brown Red * Biotin 1000 MCG Take 1 (one) tablet by mouth once daily Active Problems Problem Noted Date Diagnosed Date Pain in joint, lower leg 08/30/2021 Tear of lateral cartilage or meniscus of knee, c urrent 08/30/2021 B12 deficiency 02/28/2021 Hyperlipidemia 02/28/2021 Vitamin D deficiency 02/28/2021 Diverticulitis of large inte chaim without perforation or abscess without bleeding 06/08/2018 Diverticulitis 06/03/2012 Immunizations * FLU VACCINE QUAD IIV4 PF ID(Given 11/22/2016) * INFLUENZA VACCINE, QUADR. (FLUZONE; FLULAVAL; FLUARIX; AFLURIA QUADRIVALENT; 6MO+), 0.5 ML (IIV4)(Given 09/05/2017) Social History Tobacco Use Types Packs/Day Years [...] Pressure 130/72 03/24/2024 1:21 PM CDT Repeat MP=380/71 Pulse 59 03/24/2024 1:21 PM CDT Temperature [...] Mass Index 24.3 03/24/2024 1:21 PM CDT Procedures * CBC W AUTO DIFFERENTIAL(Performed 03/26/2019) Performed for Diverticular disease of large intestine without perforation or abscess * LIPASE BLOOD(Performed 03/26/2019) Performed for Diverticular disease of large intestine without perforation or abscess * HEPATIC FUNCTION PANEL(Performed 03/26/2019) Performed for Diverticular disease of large intestine without perforation or abscess * PATHOLOGY TISSUE(Performed 10/02/2018) Performed for Screen for colon cancer, Right upper quadrant abdominal pain * COLONOSCOPY SCREEN(Performed 10/02/2018) Performed for Screen for colon cancer, Right upper quadrant abdominal pain * ENDOSCOPY, COLON, DIAGNOSTIC(Performed 10/02/2018) * CBC W AUTO DIFFERENTIAL(Performed 12/09/2017) * BASIC METABOLIC PANEL (CALCIUM TOTAL)(Performed 12/09/2017) * HEPATIC FUNCTION PANEL(Performed 12/09/2017) * CBC W AUTO DIFFERENTIAL(Performed 12/09/2017) * URINALYSIS W/MICROSCOPIC NO CULTURE(Performed 12/09/2017) * VITAMIN D 25-HYDROXY D2+D3(Performed 03/19/2013) * TSH(Performed 03/19/2013) * T4 FREE(Performed 03/19/2013) * CBC W AUTO DIFFERENTIAL(Performed 03/19/2013) * COMPREHENSIVE METABOLIC PANEL(Performed 03/19/2013) * LIPID PROFILE(Performed 03/19/2013) * DERMATOPATHOLOGY(Performed 02/23/2013) Results * CBC WITH DIFFERENTIAL (03/26/2019 7:15 AM CDT) Only the most recent of4 resultswithin the time period is included. White Blood Cell Count 5.9 3.8 - 10.8 Thousand/u L [facility] RBC 4.06 3.80 - 5.10 Million/uL [facility] Hemoglobin 13.1 11.7 - 15.5 g/dL [facility] Hematocrit 38.3 35.0 - 45.0 % [facility] MCV 94.3 80.0 - 100.0 fL [facility] MCH 32.3 27.0 - 33.0 pg [facility] MCHC 34.2 32.0 - 36.0 g/dL [facility] RDW 11.8 11.0 - 15.0 % [facility] Platelet Count 335 140 - 400 Thousand/u L [facility] MPV 10.5 7.5 - 12.5 fL [facility] Neutrophil Absolute 2850 1500 - 7800 cells/uL [facility] Lymphocytes Absolute 2372 850 - 3900 cells/uL [facility] Absolute Monocytes 389 200 - 950 cells/uL [facility] Eosinophils Absolute 218 15 - 500 cells/uL [facility] Basophils Absolute 71 0 - 200 cells/uL [facility] Granulocytes % 48.3 % [facility] Lymphocytes % 40.2 % [facility] Monocytes % 6.6 % [facility] Eosinophils % 3.7 % [facility] Basophils % 1.2 % [facility] Comment: Test Performed at: [employer] [place] [address] DOROTEO EUGENE DO,MPH Blood BLOOD SPECIMEN / Unknown 03/26/2019 7:15 AM CDT 03/26/2019 7:15 AM CDT Irene Madrigal MD LAB - HEMATOLOGY O RDERABLES Performing Organization Address [facility] Co de Phone Number [facility] [address] [place] [address] * HEPATIC FUNCTION PANEL (03/26/2019 7:15 AM CDT) Only the most recent of2 resultswithin the time period is included. Protein Total 6.6 6.1 - 8.1 g/dL [facility] Albumin 4.0 3.6 - 5.1 g/dL [facility] Globulin Total 2.6 1.9 - 3.7 g/dL (calc) [facility] Albumin/Globulin Ratio 1.5 1.0 - 2.5 (calc) [facility] Bilirubin Total 0.6 0.2 - 1.2 mg/dL [facility] Bilirubin Direct 0.1 < OR = 0.2 mg/dL [facility] Bilirubin Indirect 0.5 0.2 - 1.2 mg/dL (calc) [facility] Alkaline Phosphatase 34 33 - 115 U/L [facility] AST 12 10 - 35 U/L [facility] ALT 8 6 - 29 U/L [facility] Comment: Test Performed at: [place] [address] DOROTEO EUGENE DO,MPH Blood BLOOD SPECIMEN / Unknown 03/26/2019 7:15 AM CDT 03/26/2019 7:15 AM CDT Irene Madrigal MD LAB - CHEMISTRY OR DERABLES Performing Organization Address [facility] de Phone Number [facility] [address] [place] [address] * LIPASE BLOOD (03/26/2019 7:15 AM CDT) Lipase 21 7 - 60 U/L [facility] Comment: Test Performed at: [facility] [address] [employer] [address] DOROTEO EUGENE DO,MPH Blood BLOOD SPECIMEN / Unknown 03/26/2019 7:15 AM CDT 03/26/2019 7:15 AM CDT Irene Madrigal MD LAB - CHEMISTRY OR DERABLES Performing Organization Address [facility] Co de Phone Number [facility] [id number] [place] [address] * PATHOLOGY TISSUE (10/02/2018 9:20 AM [facility]) Case Report Surgical Pathology Report Case: [id number] Authorizing Provider: Irene Madrigal MD Collected: 10/02/2018 09:20 AM Ordering Location: [facility] ENDOSCOPY Received: 10/02/2018 09:52 AM Pathologist: Miryam Joseph MD Specimen: Large Intestine, Right/Ascending Colon, ascending colon polyps, bx x2 10/05/2018 11:16 AM [facility] Final Diagnosis Large intestine, ascending colon polyps, biopsy (A): - Tubular adenoma - Hyperplastic polyp 10/05/2018 11:16 AM [facility] Microscopic Description and Comment Microscopic examination substantiates the final diagnosis. 10/05/2018 11:16 AM [facility] Clinical History The patient is a 48-year-old woman who underwent screening colonoscopy. Operative procedure/findings: Colonoscopy -- two diminutive sessile polyps in the ascending colon. 10/05/2018 11:16 AM [facility] Gross Description The requisition and specimen(s) are identified with the patient name, Deni Bone Received in formalin, specimen A, ascending colon polyps, bx x2 , are two fragments of soft, yellow-see tissue measuring 0.4 x 0.3 x 0.2 cm and 0.4 x 0.3 x 0.1 cm. The tissue is entirely submitted in cassette A1. ADH/puma 10/05/2018 11:16 AM [facility] Disclaimer The performance characteristics of all immunohistochemical and indirect immunofluorescence stains (if any) cited in this report were determined by the Histopathology Laboratory of [facility]. Some of these tests were developed by our own laboratory and have not been cleared or approved by the US Food and Drug Administration. The FDA does not require this test to go through premarket FDA review. These tests are used for clinical purposes. They should not be regarded as investigational or for research. This laboratory is certified under the Clinical Laboratory Improvement Amendments (CLIA) as qualified to perform high complexity clinical laboratory testing. This case has been personally reviewed and interpreted by the attending (teaching) pathologist. 10/05/2018 11:16 AM [facility] Embedded Images 10/05/2018 11:16 AM HOT BRAIDER [facility] Biopsy, NOS (Large Intestine, Right/Ascending Colon) 10/02/2018 9:20 AM HOT BRAIDER 10/02/2018 9:52 AM HOT BRAIDER Irene Madrigal MD LAB - PATHOLOGY/ARIADNA NG ORDERABLES [facility] [address] [phone] * ENDOSCOPY, COLON, DIAGNOSTIC (10/02/2018 8:35 AM HOT BRAIDER) Report Endoscopy POC Endoscopy Department Report _ Patient Name: Deni Bone Procedure Date: 10/02/2018 8:35 AM Date [...] and oxygen saturations were monitored continuously. The [id number] was introduced through the anus and advanced to the terminal ileum, with identification of the appendiceal orifice and IC valve. The colonoscopy was performed with ease. The patient tolerated the procedure well. The quality of the bowel preparation was evaluated using the BBPS ([place] Bowel Preparation Scale) with scores of: Right [...] entire procedure. Procedure Code(s): --- Professional --- 73164, Colonoscopy, flexible; with biopsy, single or multiple Diagnosis Code(s): --- Professional --- Z12.11, Encounter for screening for malignant neoplasm of colon D12.2, Benign neoplasm of ascending colon K64.8, Other hemorrhoids K57.30, Diverticulosis of large intestine without perforation or abscess without bleeding CPT copyright 2016 [employer]. All rights reserved. The codes documented in this report are preliminary and upon transitions manager rn review may be revised to meet current compliance requirements. ____ Irene Madrigal MD 10/02/2018 9:41:35 AM Note Initiated On: 10/02/2018 8:35 AM Number of Addenda: 0 [facility] [address] [facility] [place] [address] [facility] 10/02/2018 8:35 AM HOT BRAIDER Ted Campbell MD GI PROCEDURE ORDERAB LES [facility] * BASIC METABOLIC PANEL (CALCIUM TOTAL) (12/09/2017 4:22 PM HOT BRAIDER) BUN 11 7 - 26 mg/dL [facility] Creatinine 0.7 0.6 - 1.2 mg/dL [facility] Sodium 141 136 - 145 mmol/L [facility] Potassium 3.6 3.5 - 4.5 mmol/L [facility] Chloride 105 98 - 107 mmol/L [facility] CO2 26 22 - 29 mmol/L [facility] Glucose 111 70 - 115 mg/dL [facility] Calcium 8.9 8.4 - 10.2 mg/dL [facility] Anion Gap 14 8 - 18 [facility] BUN/Creatinine Ratio 16 7 - 23 [facility] Osmolality Calculated 292 270 - 300 mOsm/kg [facility] eGFR >60 >60 mL/min/1.7 3 m2 [facility] Blood specimen (specimen) BLOOD SPECIMEN / Unknown 12/09/2017 4:22 PM HOT BRAIDER 12/09/2017 5:06 PM HOT BRAIDER Irene Madrigal MD LAB - CHEMISTRY OR DERABLES Performing Organization Address [facility]/ZIP Co de Phone Number [address] [phone] * (ABNORMAL) URINALYSIS W/MICROSCOPIC NO CULTURE (12/09/2017 4:18 PM HOT BRAIDER) Color UA Yellow Straw, Yellow, Colorless, Light Yellow [facility] Clarity UA Clear Clear [facility] Specific Harvard UA 1.005 1.001 - 1.030 [facility] pH UA 6.5 5.0 - 8.0 [facility] Protein UA Negative <=20 mg/dL [facility] Glucose UA Negative Negative mg/dL [facility] Ketone UA Negative Negative mg/dL [facility] Bilirubin UA Negative Negative mg/dL [facility] Blood UA Negative Negative [facility] Nitrite UA Negative Negative [facility] Leukocyte Esterase Large(A) Negative [facility] Urobilinogen UA <2.0 <2.0 mg/dL [facility] RBC UA 1 0 - 8 /HPF [facility] WBC UA 6(H) 0 - 2 /HPF [facility] Bacteria UA Rare Rare, Occasional, None /HPF [facility] Squamous Epithelial Cells UA 2(H) 0 - 1 /HPF [facility] Mucus UA Rare(A) None /LPF [facility] Urine specimen (specimen) URINE SPECIMEN OBTAINED BY CLEAN CATCH PROCEDURE / Unknown 12/09/2017 4:18 PM HOT BRAIDER 12/09/2017 5:08 PM HOT BRAIDER Irene Madrigal MD LAB - URINALYSIS O RDERABLES Performing Organization Address City/[facility]/ZIP Co de Phone Number [address] [phone] * VITAMIN D 25-HYDROXY D2+D3 BY TANDEM MASS (03/19/2013 7:38 AM CDT) Pathologist [facility] Vitamin D, 25 Hydroxy Total 49 30 - 100 ng/mL [facility] ([facility]) Comment: 25-OHD3 indicates both endogenous production and supplementation. 25-OHD2 is an indicator of exogenous sources, such as diet or supplementation. Therapy is based on measurement of Total 25-OHD, with levels <20 ng/mL indicative of Vitamin D deficiency, while levels between 20 ng/mL and 30 ng/mL suggest insufficiency. Optimal levels are > or = 30 ng/mL. Vitamin D, 25 Hydroxy D3 45 See Below ng/mL [facility] ([facility]) Comment:Reference Range: Not established Vitamin D, 25 Hydroxy D2 4 See Below ng/mL [facility] ([facility]) Comment: Reference Range: Not established REPORT COMMENT: FASTING Test Performed at: [employer] [employer] [address] [address] JOSH DEAN MD 03/19/2013 7:38 AM CDT 03/19/2013 7:41 AM CDT Gi Menezes MD LAB - CHEMISTRY ORD ERABLES [facility] ([facility]) * COMPREHENSIVE METABOLIC PANEL (03/19/2013 7:38 AM CDT) [facility] Glucose 83 65 - 99 mg/dL [facility] ([facility]) Comment: Fasting reference interval BUN 12 7 - 25 mg/dL [facility] ([facility]) Creatinine 0.83 0.50 - 1.10 mg/dL [facility] ([facility]) eGFR non- 86 > OR = 60 mL/min/1. 73m2 [facility] ([facility]) eGFR 100 > OR = 60 mL/min/1. 73m2 [facility] ([facility]) BUN/Creatinine Ratio NOT APPLICABLE 6 - 22 (calc) [facility] ([facility]) Sodium 138 135 - 146 mmol/L [facility] ([facility]) Potassium 4.4 3.5 - 5.3 mmol/L [facility] ([facility]) Chloride 105 98 - 110 mmol/L [facility] ([facility]) CO2 26 19 - 30 mmol/L [facility] ([facility]) Calcium 9.3 8.6 - 10.2 mg/dL [facility] ([facility]) Protein Total 6.7 6.1 - 8.1 g/dL [facility] ([facility]) Albumin 4.2 3.6 - 5.1 g/dL [facility] ([facility]) Globulin 2.5 1.9 - 3.7 g/dL (calc) [facility] ([facility]) Albumin/Globuli n Ratio 1.7 1.0 - 2.5 (calc) [facility] ([facility]) Bilirubin Total 0.5 0.2 - 1.2 mg/dL [facility] ([facility]) Alkaline Phosphatase 34 33 - 115 U/L [facility] ([facility]) AST 14 10 - 30 U/L [facility] ([facility]) ALT 13 6 - 40 U/L [facility] ([facility]) Comment: Test Performed at: [employer] [address] [place] [address] DOROTEO EUGENE DO,MPH 03/19/2013 7:38 AM CDT 03/19/2013 7:41 AM CDT Gi Menezes MD LAB - CHEMISTRY ORD ERABLES Performing Organization Address [facility] Phone Number [facility] ([facility]) * TSH (03/19/2013 7:38 AM CDT) TSH 2.36 mIU/L [facility] ([facility]) Comment: Reference Range > or = 20 Years 0.40-4.50 Ranges First trimester 0.26-2.66 Second trimester 0.55-2.73 Third trimester 0.43-2.91 Test Performed at: [employer] [facility] [place] [address] DOROTEO EUGENE DO,MPH 03/19/2013 7:38 AM CDT 03/19/2013 7:41 AM CDT Gi Menezes MD LAB - CHEMISTRY ORD ERABLES Performing Organization Address [facility] de Phone Number [facility] ([facility]) * T4 FREE (03/19/2013 7:38 AM CDT) T4 Free 1.2 0.8 - 1.8 ng/dL [facility] ([facility]) Comment: The current lot of free T4 reagent available from the [employer] developer produces results that are approximately 9% higher than previous reagent lots. Please interpret these results accordingly. Test Performed at: [facility] [address] [place] [address] DOROTEO EUGENE DO,MPH 03/19/2013 7:38 AM CDT 03/19/2013 7:41 AM CDT Gi Menezes MD LAB - CHEMISTRY ORD ERABLES Performing Organization Address [facility] Co de Phone Number [facility] ([facility]) * (ABNORMAL) LIPID PROFILE (03/19/2013 7:38 AM CDT) Cholesterol Total 194 125 - 200 mg/dL [facility] ([facility]) HDL 44(L) > OR = 46 mg/dL [facility] ([facility]) Triglycerides 178(H) <150 mg/dL [facility] ([facility]) LDL Calculated 114 <130 mg/dL (calc) [facility] ([facility]) Comment: Desirable range <100 mg/dL for patients with CHD or diabetes and <70 mg/dL for diabetic patients with known heart disease. Chol/HDL Ratio 4.4 < OR = 5.0 (calc) [facility] ([facility]) Non HDL Cholesterol 150 mg/dL (calc) [facility] ([facility]) Comment: Target for non-HDL cholesterol is 30 mg/dL higher than LDL cholesterol target. Test Performed at: [facility] [address] [place] [address] DOROTEO EUGENE DO,MPH 03/19/2013 7:38 AM CDT 03/19/2013 7:41 AM CDT Gi Menezes MD LAB - CHEMISTRY ORD ERABLES Performing Organization Address [facility] Co de Phone Number [facility] ([facility]) * PATHOLOGY TISSUE FOR DERMATOLOGY (02/23/2013 12:00 AM CDT) Result CASE: [id number] PATIENT: DENI BONE PATHOLOGIC DIAGNOSIS: A. Left labia: CHRONIC SPONGIOTIC DERMATITIS WITH RARE EOSINOPHILS (see microscopic description and comment) B. 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 Left forearm: SEBORRHEIC KERATOSIS, MACULAR NOT PRESENT AT SAMPLED MARGIN CLINICAL DATA: A: LS et A vs PSO vs Chronic tomy. B: Nevus. Check margins. C: Lentigo vs other. Check margins. GROSS DESCRIPTION: A: Received is one formalin filled container labeled with the patient's name and designated left labia. The specimen consists of a punch biopsy measuring [id number]. Jar 0. B: Received is one formalin filled container labeled with the patient's name and designated right lat back. The specimen consists of a shave biopsy measuring 6x5x1 mm. Jar 0. C: Received is one formalin filled container labeled with the patient's name and designated left forearm. The specimen consists of a shave biopsy measuring 10x6x1 mm. Jar 0. MICROSCOPIC DESCRIPTION: SPECIMEN A: There is focal parakeratosis and mild spongiosis of the epidermis. In the dermis there is a mainly superficial perivascular lymphoid infiltrate with rare eosinophils. Gram and GMS stains fail to highlight any bacterial or fungal organisms. Additional deeper sections were obtained and reviewed. COMMENT: The histologic differential diagnosis includes a contact dermatitis and an eczematous dermatitis. SPECIMEN B: This is a junctional nevus. There is pigmented parakeratosis present. There is architectural disorder characterized by a lentiginous proliferation of melanocytes between irregular nests of cells along the dermal-epiderma l junction. There is underlying fibroplasia of the papillary dermis. (Junctional Donald's Nevus or Junctional Dysplastic Nevus) This lesion is not present at the sampled margin of the specimen. SPECIMEN C: Sections show a relatively broad, flat proliferation of small keratinocytes. The surface is gently papillated, and there is increased basilar pigmentation. This lesion is not present at the sampled margin of the specimen. Final Diagnosis performed by Gini Johnson M.D. Electronically signed 02/25/2013 5:10:42PM [facility] Comment: Performed at: Dermatopathology Laboratory [facility] - Department of Dermatology [facility] [facility] [place] [address] Phone number: [phone] Toll Free: [phone] FAX: [phone] 02/23/2013 02/24/2013 Historical Provider LAB - PATHOLOGY/C YTOLOGY ORDERABLES [facility] [address] [place] [address], [facility] [phone] Sql Developer Relationship Specialty Start Date End Date Corrie Howard APRN-CLINICAL TECHNOLOGIST [address] [employer] [address] [place] [address] PCP - General 08/07/21 Gi Menezes MD [address] [employer] [address] [place] [address] Obstetrics and Gynecology 04/11/21
--- OUTSIDE RECORDS SUMMARY | 2024-12-29 12:05 | XMS_ITS | Encounter Summary ---
Author Organization [facility] Address [facility] [place] [address] Care Team Providers Care Improvement Spec Name Role Phone Corrie Howard NP Primary Care Provider [phone] Pema Hernández MD Primary Care Provider + Encounter Details Date Type Department Care Team (Late st Contact Info) Description 06/19/2023 Vinylmintt Message Enc [facility] Family Medicine - [place] [address] [place], [place] [id number] Corrie Howard NP [address] [place] [address] Question regarding HERPES SIMPLEX VIRUS IGG Social History Tobacco Use Types Packs/Day Years Used Date Smoking Tobacco: Never Passive Smoke Exposure: Past Smokeless Tobacco: Never Comments:The provider can pr ovide you with more information about quitting. Alcohol Use Standard Drinks/Week Comments Not Currently 0 (1 standard drink = 0.6 oz pur e alcohol) PHQ-2 Answer Date Recorded Patient Health Questionnaire-2 Score 0 06/12/2023 Comments No Sex and Gender Information Value Date Recorded Sex Assigned at Not on file Legal Sex Female 4:37 PM CDT Gender Identity Not on file Sexual Orientation Not on file documented as of this encounter Plan of Treatment Not on file documented as of this encounter Visit Diagnoses Not on filedocumented in this encounter Additional Health Concerns Assessment Noted Time PHQ-9 Depression Total Score: 0 04/14/20 21 12:43 PM CDT documented as of this encounter Care Teams Improvement Spec Relationship Specialty Start Date End Date Corrie Howard NP [address] [place] [address] PCP - General NURSE PRACTITIONER 02/27/21 12/28/24 Pema Hernández MD [address] [place] [address] PCP - General FAMILY PRACTICE 12/29/24 documented as of this encounter
--- OUTSIDE RECORDS SUMMARY | 2024-12-29 12:05 | XMS_ITS | Referral Summary ---
Author Organization [facility] Address [address] [place] [address] Care Team Providers Care Polls Or Surveys Interviewer Name Role Phone Gi Menezes MD Unavailable [phone] Corrie Howard APRN-[facility] Primary Care Provi randolph Source Comments [facility],non-owned Affiliates and Associated Physician Practices is amultiple site organization consisting of ambulatory clinics and hospital sitesin [place], [place], [place] and [place]. This disclosure is being madepursuant to the Care Everywhere program and may not contain all information available regarding this patient. Last updated 18.[facility] Allergies Active Allergy Reactions Criticality Noted Date [...] AFLURIA QUADRIVALENT; 6MO+), 0.5 ML (IIV4) 09/05/2017 Social History Tobacco Use Types Packs/Day Years [...] Pressure 130/72 03/24/2024 1:21 PM CDT Repeat FA=815/71 Pulse 59 03/24/2024 1:21 PM CDT Temperature [...] Description 03/23/2025 11:30 AM CDT Office Visit [facility] [address] [facility], [place] [id number] JocelynghislaineCarolynnBren Feng, MANUFACTURING DEVELOPMENT ENGINEER-HEALTH INFORMATION PROVIDER [address] [place] [id number] Goals Goal Patient Goal Type Associated Problems Recent Progress Patient-Stated? Author Safety General On track( 022 12:38 PM CDT) No Charlee Mcdonough, RN Note: Expected end date: Ongoing Interventions: Your nurse will assess your risk for falls/injury each visit Use appropriate and safe transfer methods Medication Management General On track( 024 1:29 PM CDT) Charlee Fisher, RN Note: Expected end date: Ongoing Interventions: Take all medications as prescribed Let your doctor know right away about any changes in your medications Procedures Procedure Name Priority Date/Time Associated Diagnosis Comments ENDOSCOPY, COLON, DIAGNOSTIC Routine 10/02/2018 8:35 AM E COMMERCE PROJECT MANAGER LIPID PROFILE Routine 03/19/2013 7:38 AM CDT from Last 3 Months or Most Recently Relevant to Health Maintenance Results * ENDOSCOPY, COLON, DIAGNOSTIC (10/02/2018 8:35 AM E COMMERCE PROJECT MANAGER) Report Endoscopy POC Endoscopy Department Report _ [...] and oxygen saturations were monitored continuously. The CF-[id number] was introduced through the anus and advanced to the terminal ileum, with identification of the appendiceal orifice and IC valve. The colonoscopy was performed with ease. The patient tolerated the procedure well. The quality of the bowel preparation was evaluated using the BBPS ([place] Bowel Preparation Scale) with scores of: Right [...] entire procedure. Procedure Code(s): --- Professional --- 64925, Colonoscopy, flexible; with biopsy, single or multiple Diagnosis Code(s): --- Professional --- Z12.11, Encounter for screening for malignant neoplasm of colon D12.2, Benign neoplasm of ascending colon K64.8, Other hemorrhoids K57.30, Diverticulosis of large intestine without perforation or abscess without bleeding CPT copyright 2016 [employer]. All rights reserved. The codes documented in this report are preliminary and upon table machine operator review may be revised to meet current compliance requirements. ____ Irene Madrigal MD 10/02/2018 9:41:35 AM Note Initiated On: 10/02/2018 8:35 AM Number of Addenda: [address] [address] [facility] [employer] 10/02/2018 8:35 AM E COMMERCE PROJECT MANAGER Ted Campbell MD GI PROCEDURE ORDERAB LES Performing Organization Address City/State/[facility] Co de Phone Number [facility] [employer] * (ABNORMAL) LIPID PROFILE (03/19/2013 7:38 AM CDT) Cholesterol Total 194 125 - 200 mg/dL [facility] ([facility]) HDL 44(L) > OR = 46 mg/dL [facility] ([facility]) Triglycerides 178(H) <150 mg/dL [facility] ([facility]) LDL Calculated 114 <130 mg/dL (calc) [facility] ([facility]) Comment: Desirable range <100 mg/dL for patients with CHD or diabetes and <70 mg/dL for diabetic patients with known heart disease. Chol/HDL Ratio 4.4 < OR = 5.0 (calc) [facility] ([facility]) Non HDL Cholesterol 150 mg/dL (calc) [facility] ([facility]) Comment: Target for non-HDL cholesterol is 30 mg/dL higher than LDL cholesterol target. Test Performed at: [facility] [address] [place] [address] DOROTEO EUGENE DO,MPH 03/19/2013 7:38 AM CDT 03/19/2013 7:41 AM CDT Gi Menezes MD LAB - CHEMISTRY ORD ERABLES Performing Organization Address City/[facility] Co de Phone Number [facility] ([facility]) from Last 3 Months or Most Recently Relevant to Health Maintenance Care Teams Polls Or Surveys Interviewer Relationship Specialty Start Date End Date Corrie Howard, MANUFACTURING DEVELOPMENT ENGINEER-HEALTH INFORMATION PROVIDER [address] [facility] [address] [place] [address] PCP - General 08/07/21 Gi Menezes MD [address] [facility] [address] [place] [address] Obstetrics and Gynecology 04/11/21
--- OUTSIDE RECORDS SUMMARY | 2024-12-29 12:05 | XMS_ITS | Encounter Summary ---
Author Organization [facility] Address On license of [facility] [place] [address] Care Team Providers Care Wool And Pelt Grader Name Role Phone Pema Hernández MD Primary Care Provider + Reason for Visit * Reason Onset Date Comments Back Pain 12/29/2024 Encounter Details Date Type Department Care Team (Late st Contact Info) Description 12/29/2024 Telephone [facility] Family Medicine - [place] [address] [place] [phone] Pema Hernández MD [address] [place] [id number] Back Pain Social History Tobacco Use Types Packs/Day Years [...] on file documented as of this encounter Progress Notes * Pema Hernández MD - 12/29/2024 11:51 AM CST Agreed! Thanks! ING CHECKER * Melanie Singh MA - 12/29/2024 11:13 AM CST Patient called in with c/o sudden onset of mid to upper right sided back pain followed by shortnessof breath and tightness in the chest. Started this morning. She is currently on her way to [facility]. I advised to follow up after visit. [facility] ING CHECKER documented in this encounter Plan of Treatment Not on file documented as of this encounter Visit Diagnoses Not on filedocumented in this encounter Additional Health Concerns Assessment Noted Time PHQ-9 Depression Total Score: 0 09/18/20 23 10:06 AM CDT documented as of this encounter Care Teams Wool And Pelt Grader Relationship Specialty Start Date End Date Pema Hernández MD [address] [place] [address] PCP - General FAMILY PRACTICE 12/29/24 documented as of this encounter
--- OUTSIDE RECORDS SUMMARY | 2024-12-29 12:05 | XMS_ITS | Encounter Summary ---
Author Organization [facility] Address [facility] [place] [address] Care Team Providers Care Geology Technician Name Role Phone Corrie Howard NP Primary Care Provider [phone] Pema Hernández MD Primary Care Provider + Encounter Details Date Type Department Care Team (Late st Contact Info) Description 04/21/2024 Bella Picturest Message Enc [facility] Family Medicine - [place] [address] [facility] [address] [place] [phone] Corrie Howard NP [address] [place] [address] Form for DCFS Social History Tobacco Use Types Packs/Day Years Used Date Smoking Tobacco: Never Passive Smoke Exposure: Past Smokeless Tobacco: Never Comments:The provider can pr ovide you with more information about quitting. Alcohol Use Standard Drinks/Week Comments Not Currently 0 (1 standard drink = 0.6 oz pur e alcohol) PHQ-2 Answer Date Recorded Patient Health Questionnaire-2 Score 0 03/11/2024 Comments No Sex and Gender Information Value Date Recorded Sex Assigned at Not on file Legal Sex Female 4:37 PM CDT Gender Identity Not on file Sexual Orientation Not on file documented as of this encounter Progress Notes * Melanie Singh MA - 04/23/2024 11:37 AM CDT Appointment scheduled for 04/26/24 * Corrie Howard NP - 04/22/2024 1:00 PM CDT In regards to the form for me to complete. They are wanting her lab TB test, Tdap, flu shot in the last year? We don't have these on file. Also, last time she was in the office in February she was having hand pain and swelling. She has had problems with her hip, knee before as well. Note wants me to put any abnormal findings that would affect her caring for a child. How hold is the child she will be fostering? If little can be difficult to hold a young child if having hand pain,swelling still. If she is having any joint pains still I would like her to make an appointment for a physical exam as the form wants me to go over what things she can and cannot physically do. documented in this encounter Plan of Treatment Not on file documented as of this encounter Visit Diagnoses Not on filedocumented in this encounter Additional Health Concerns Assessment Noted Time PHQ-9 Depression Total Score: 0 09/18/20 23 10:06 AM CDT documented as of this encounter Care Teams Geology Technician Relationship Specialty Start Date End Date Corrie Howard NP [address] [place] [address] PCP - General NURSE PRACTITIONER 02/27/21 12/28/24 Pema Hernández MD [address] [place] [address] PCP - General FAMILY PRACTICE 12/29/24 documented as of this encounter
--- NOTE | 2024-12-29 14:04 | ED_ITS ---
HPI - Back Pain/Injury General Chief Complaint: Back Pain/Injury <MULUGETA Delvalle Last Filed: 12/29/24 14:08> Stated Complaint: right flank pain <MULUGETA Delvalle Last Filed: 12/29/24 14:08> Time Seen by Provider: 12/29/24 14:04 <MULUGETA Delvalle Last Filed: 12/29/24 14:08> Focused HPI: Patient is a 54 y/o female who presents to the ED with c/o R flank pain. Patient reports she was walking to her car around 8:00 a.m. this morning when she developed sudden pain in her right flank region/mid back. States pain has been constant since then. Denies any recent heavy lifting or strenuous activity. Denies abdominal pain. Denies history of kidney stones. Does have history of diverticulitis of her transverse colon, but states this does not feel similar. She has not taken anything for pain. She denies any other associated symptoms. Denies nausea, vomiting, diarrhea, constipation dysuria, hematuria. GENERAL: Well-appearing, well-nourished, and in no acute distress. HEAD: Normocephalic, atraumatic. CHEST: Clear to auscultation. ?No respiratory distress. HEART: Regular rate and rhythm.? MSK: Mild TTP along R inferior posterolateral rib cage, CVA region. No significant midline spinal tenderness. NEURO: ?Alert and oriented x3. Patient screened in triage and initial orders placed.? ?Additional care and disposition to be based upon?diagnostic testing and treatment. <MULUGETA Delvalle Last Filed: 12/29/24 14:08> Source: patient <MULUGETA Delvalle Last Filed: 12/29/24 14:08> Mode of arrival: ambulatory <MULUGETA Delvalle Last Filed: 12/29/24 14:08> Limitations: no limitations <MULUGETA Delvalle Last Filed: 12/29/24 14:08> History of Present Illness HPI Narrative: as per [facility] HPI <Bessie Caban III, DO - Last Filed: 12/29/24 18:40> Related Data Home Medications: Home Medications ?Medication ?Instructions ?Recorded ?Confirmed ?Last Taken ?Type biotin 10 mg tablet 10 mg PO DAILY 11/23/21 07/29/22 01/04/22 History cholecalciferol (vitamin D3) 125 125 mcg PO DAILY 11/23/21 07/29/22 01/04/22 History mcg (5,000 unit) capsule omega 5-bjv-owl-fish oil 300 1 cap PO DAILY 11/23/21 07/29/22 01/04/22 History mg-1,000 mg capsule (Fish Oil) vitamin B complex (B 1 tablet PO DAILY 11/23/21 07/29/22 01/04/22 History Complex-Vitamin B12 tablet) <Ruth Ann Aponte PA-C - Last Filed: 12/29/24 14:08> Allergies/Adverse Reactions: Allergies Allergy/AdvReac Type Severity Reaction Status Date / Time Sulfa (Sulfonamide Allergy Severe Hives Verified 12/29/24 11:29 Antibiotics) <Ruth Ann Aponte PA-C - Last Filed: 12/29/24 14:08> Review of Systems 2 Review of Systems: All systems reviewed & are unremarkable except as noted in HPI and below <Bessie Caban III, DO - Last Filed: 12/29/24 18:40> [facility] Past Medical History Medical History: Medical History Left hip pain Left knee pain <MULUGETA Delvalle Last Filed: 12/29/24 14:08> Family History Family History: Family History Mother Hypertension Family history of elevated blood lipids Other Cerebrovascular accident Family history of arthritis <MULUGETA Delvalle Last Filed: 12/29/24 14:08> Social History Social History: Social History Smoking status: Never smoker Alcohol intake: never Substance use: never Substance use type: does not use Living arrangements: with family Gender identity (if verbalized by the patient): Female Spiritual care concerns: No <Ruth Ann Aponte PA-C - Last Filed: 12/29/24 14:08> Exam 2 Const: General: healthy appearing and no acute distress <Bessie Franco Caban III, DO - Last Filed: 12/29/24 18:40> Nutritional Appearance: well nourished <Bessie Franco Caban III, DO - Last Filed: 12/29/24 18:40> Orientation/consciousness: patient oriented x3 <Bessie Franco Caban III, DO - Last Filed: 12/29/24 18:40> Limitations: no limitations <Bessie Franco Caban III, DO - Last Filed: 12/29/24 18:40> Chest: Other: tender intercostal muscles right back to palpation wrapping aroung to front <Bessie Franco Caban III, DO - Last Filed: 12/29/24 18:40> Resp: Effort & Inspection: normal respiratory effort <Bessie Franco Caban III, DO - Last Filed: 12/29/24 18:40> Auscultation: clear to auscultation bilaterally <Bessie Franco Caban III, DO - Last Filed: 12/29/24 18:40> Cardio: Rate: regular rate <Bessie Franco Caban III, DO - Last Filed: 12/29/24 18:40> Rhythm: regular rhythm <Bessie Franco Caban III, DO - Last Filed: 12/29/24 18:40> GI: GI Palp: Yes Soft to palpation and No Tenderness to palpation present (GI) <Bessie Franco Caban III, DO - Last Filed: 12/29/24 18:40> Auscultation: normal bowel sounds <Bessie Franco Caban III, DO - Last Filed: 12/29/24 18:40> Back/Spine/Pelvis: Back: CVA tenderness (right) <Bessie Franco Caban III, DO - Last Filed: 12/29/24 18:40> Skin: General skin exam: normal color <Bessie Franco Caban III, DO - Last Filed: 12/29/24 18:40> Rashes: no rashes <Bessie Franco Caban III, DO - Last Filed: 12/29/24 18:40> Wounds: no wounds <Bessie Franco Caban III, DO - Last Filed: 12/29/24 18:40> Neuro: General: patient oriented x3, moves all extremities, no focal motor deficits and CN's II-XI intact bilaterally <Bessie Franco Caban III, DO - Last Filed: 12/29/24 18:40> Speech: normal speech <Bessie Franco Caban III, DO - Last Filed: 12/29/24 18:40> Extrem: General: normal to inspection and no clubbing, cyanosis or edema < Bessie Franco Caban III, DO - Last Filed: 12/29/24 18:40> Psych: Mental Status: mental status grossly normal <Bessie Franco Caban III, DO - Last Filed: 12/29/24 18:40> Affect: normal affect <Bessie Franco Caban III, DO - Last Filed: 12/29/24 18:40> Attitude: cooperative <Bessie Franco Caban III, DO - Last Filed: 12/29/24 18:40> Course Vital Signs Vital signs: Vital Signs Temperature 97.6 F 12/29/24 11:25 Pulse Rate 79 12/29/24 11:25 Respiratory Rate 18 12/29/24 11:25 Blood Pressure 136/78 12/29/24 11:25 Pulse Oximetry 99 12/29/24 11:25 Oxygen Delivery Room Air 12/29/24 11:25 Temperature 97.5 F L 12/29/24 17:30 Pulse Rate 70 12/29/24 17:30 Respiratory Rate 18 12/29/24 17:30 Blood Pressure 112/72 12/29/24 17:30 Pulse Oximetry 99 12/29/24 17:30 Oxygen Delivery Room Air 12/29/24 15:18 <Ruth Ann Aponte PA-C - Last Filed: 12/29/24 14:08> Vital Signs Temperature 97.6 F 12/29/24 11:25 Pulse Rate 79 12/29/24 11:25 Respiratory Rate 18 12/29/24 11:25 Blood Pressure 136/78 12/29/24 11:25 Pulse Oximetry 99 12/29/24 11:25 Oxygen Delivery Room Air 12/29/24 11:25 Temperature 97.5 F L 12/29/24 17:30 Pulse Rate 70 12/29/24 17:30 Respiratory Rate 18 12/29/24 17:30 Blood Pressure 112/72 12/29/24 17:30 Pulse Oximetry 99 12/29/24 17:30 Oxygen Delivery Room Air 12/29/24 15:18 <Bessie Batistaver III, DO - Last Filed: 12/29/24 18:40> MDM - Back Pain/Injury MDM Narrative Medical decision making narrative: MSE by KENDRA in triage. <Ruth Ann Aponte PA-C - Last Filed: 12/29/24 14:08> MSE by KENDRA in triage. pt had labs and CT abd [facility]. CT no acute process, labs fine. will try shot of toradol for pain. some minimal relief with toradol. will send home on norco and flexeril <Bessie Caban III, DO - Last Filed: 12/29/24 18:40> Lab Data Result diagrams: 12/29/24 11:38 12/29/24 11:38 <Ruth Ann Aponte PA-C - Last Filed: 12/29/24 14:08> Labs: Lab Results 12/29/24 12/29/24 Range/Units 11:38 11:40 WBC 7.9 (4.5-10.0) K/mm3 RBC 4.48 (4.2-5.4) M/mm3 Hgb 14.2 (12.0-15.0) g/dL Hct 42.5 (37.0-47.0) % MCV 94.9 (80-100) fl MCH 31.7 (26-34) pg MCHC 33.4 (32-36) g/dl RDW 11.7 (11.5-14.5) % Plt Count 293 (150-375) k/mm3 MPV 10.5 H (7.4-10.4) fl Immature Gran % (Auto) 0.1 (0-0.5) % Neut % (Auto) 55.8 (45.5-73.1) % Lymph % (Auto) 33.7 (18.3-44.2) % Nye % (Auto) 7.9 (2.6-8.5) % Eos % (Auto) 1.9 (0-4.4) % Baso % (Auto) 0.6 (0.2-1.2) % Lymph # (Auto) 2.65 (0.9-3.2) K/mm3 Nye # (Auto) 0.6 (0.1-0.6) K/mm3 Eos # (Auto) 0.2 (0-0.3) K/mm3 Baso # (Auto) 0.1 (0.0-0.1) K/mm3 Abs Immat Gran (auto) 0.01 (0.00-0.031) K/mm3 Absolute Neuts (auto) 4.4 (1.3-6.7) K/mm3 Absolute Nucleated RBC 0.000 (0.0-0.012) K/mm3 Nucleated RBC % 0.0 (0.0-0.2) % Sodium 138 (137-145) mmol/L Potassium 3.6 (3.4-5.0) mmol/L Chloride 100 (98-107) mmol/L Carbon Dioxide 28 (22-30) mmol/L Anion Gap 10 (4-12) mmol/L BUN 21 H (7-17) mg/dL Creatinine 0.68 L (0.7-1.0) mg/dL Estim Creat Clear Calc 71 ml/min Estimated GFR > 60 (59 - ) Glucose 85 (65-110) mg/dL Calcium 9.4 (8.4-10.2) mg/dL Total Bilirubin 0.9 (0.2-1.3) mg/dL AST 34 (14-36) U/L ALT 41 H (6-35) U/L Alkaline Phosphatase 63 (38-126) U/L Total Protein 8.0 (6.3-8.2) g/dL Albumin 4.7 (3.5-5.1) g/dL Urine Color Yellow (Yellow) Urine Appearance Clear (Clear) Urine pH 6.0 (5.0-9.0) Ur Specific Eldridge 1.006 (1.001-1.035) Urine Protein Negative (Negative) mg/dL Urine Glucose (UA) Negative (Negative) mg/dL Urine Ketones Negative (Negative) mg/dL Ur Blood (Man) Negative (Negative) Urine Nitrate Negative (Negative) Urine Bilirubin Negative (Negative) Urine Urobilinogen 0.2 (<2.0) mg/dL Leukocyte Esterase Rfl Negative (Negative) POLLO/UL POC Urine HCG, Qual Negative (Negative) <Ruth Ann Aponte PA-C - Last Filed: 12/29/24 14:08> Lab Results 12/29/24 12/29/24 Range/Units 11:38 11:40 WBC 7.9 (4.5-10.0) K/mm3 RBC 4.48 (4.2-5.4) M/mm3 Hgb 14.2 (12.0-15.0) g/dL Hct 42.5 (37.0-47.0) % MCV 94.9 (80-100) fl MCH 31.7 (26-34) pg MCHC 33.4 (32-36) g/dl RDW 11.7 (11.5-14.5) % Plt Count 293 (150-375) k/mm3 MPV 10.5 H (7.4-10.4) fl Immature Gran % (Auto) 0.1 (0-0.5) % Neut % (Auto) 55.8 (45.5-73.1) % Lymph % (Auto) 33.7 (18.3-44.2) % Nye % (Auto) 7.9 (2.6-8.5) % Eos % (Auto) 1.9 (0-4.4) % Baso % (Auto) 0.6 (0.2-1.2) % Lymph # (Auto) 2.65 (0.9-3.2) K/mm3 Nye # (Auto) 0.6 (0.1-0.6) K/mm3 Eos # (Auto) 0.2 (0-0.3) K/mm3 Baso # (Auto) 0.1 (0.0-0.1) K/mm3 Abs Immat Gran (auto) 0.01 (0.00-0.031) K/mm3 Absolute Neuts (auto) 4.4 (1.3-6.7) K/mm3 Absolute Nucleated RBC 0.000 (0.0-0.012) K/mm3 Nucleated RBC % 0.0 (0.0-0.2) % Sodium 138 (137-145) mmol/L Potassium 3.6 (3.4-5.0) mmol/L Chloride 100 (98-107) mmol/L Carbon Dioxide 28 (22-30) mmol/L Anion Gap 10 (4-12) mmol/L BUN 21 H (7-17) mg/dL Creatinine 0.68 L (0.7-1.0) mg/dL Estim Creat Clear Calc 71 ml/min Estimated GFR > 60 (59 - ) Glucose 85 (65-110) mg/dL Calcium 9.4 (8.4-10.2) mg/dL Total Bilirubin 0.9 (0.2-1.3) mg/dL AST 34 (14-36) U/L ALT 41 H (6-35) U/L Alkaline Phosphatase 63 (38-126) U/L Total Protein 8.0 (6.3-8.2) g/dL Albumin 4.7 (3.5-5.1) g/dL Urine Color Yellow (Yellow) Urine Appearance Clear (Clear) Urine pH 6.0 (5.0-9.0) Ur Specific Eldridge 1.006 (1.001-1.035) Urine Protein Negative (Negative) mg/dL Urine Glucose (UA) Negative (Negative) mg/dL Urine Ketones Negative (Negative) mg/dL Ur Blood (Man) Negative (Negative) Urine Nitrate Negative (Negative) Urine Bilirubin Negative (Negative) Urine Urobilinogen 0.2 (<2.0) mg/dL Leukocyte Esterase Rfl Negative (Negative) POLLO/UL POC Urine HCG, Qual Negative (Negative) <Bessie Caban III, DO - Last Filed: 12/29/24 18:40> Discharge Plan Discharge Clinical Impression: Intercostal muscle pain <MULUGETA Delvalle Last Filed: 12/29/24 14:08> Patient Disposition: Home, Self-Care <MULUGETA Delvalle Last Filed: 12/29/24 14:08> Condition: Stable <MULUGETA Delvalle Last Filed: 12/29/24 14:08> Instructions: Antibiotic Form, Chest Wall Pain (ED) <MULUGETA Delvalle Last Filed: 12/29/24 14:08> Patient Language: Albanian <MULUGETA Delvalle Last Filed: 12/29/24 14:08> Prescriptions: New hydrocodone-acetaminophen 5-325 mg tablet 1 tablet PO Q4H PRN (Reason: pain) Qty: 14 0RF cyclobenzaprine 10 mg tablet 10 mg PO TID Qty: 14 0RF No Action meloxicam 15 mg tablet 15 mg PO DAILY Qty: 30 2RF Rx Instructions: 1 tablet daily for pain cholecalciferol (vitamin D3) 125 mcg (5,000 unit) capsule 125 mcg PO DAILY biotin 10 mg tablet 10 mg PO DAILY omega 8-oiz-zdo-fish oil [Fish Oil] 300-1,000 mg capsule 1 cap PO DAILY vitamin B complex [B Complex-Vitamin B12] Tablet 1 tablet PO DAILY <Ruth Ann Aponte PA-C - Last Filed: 12/29/24 14:08> Follow-up/Referrals: Lee,RAJANI Marcos [Primary Care Provider] - <Ruth Ann Aponte PA-C - Last Filed: 12/29/24 14:08>
--- OUTSIDE RECORDS SUMMARY | 2024-12-29 14:18 | XMS_ITS | Encounter Summary ---
Author Organization [facility] Address [facility] [place] [address] Care Team Providers Care Director Reactor Projects Name Role Phone Corrie Howard NP Primary Care Provider [phone] Pema Hernández MD Primary Care Provider + Encounter Details Date Type Department Care Team (Late st Contact Info) Description 04/21/2024 [email or web address] Message Enc [facility] Family Medicine - [place] [address] [facility] [address] [place] [id number] Corrie Howard NP [address] [place] [address] Form for DCFS Social History Tobacco Use [...] documented as of this encounter Care Teams Director Reactor Projects Relationship Specialty Start Date End Date Corrie Howard NP [address] [place] [address] PCP - General NURSE PRACTITIONER 02/27/21 12/28/24 Pema Hernández MD [address] [place] [address] PCP - General FAMILY PRACTICE 12/29/24 documented as of this encounter
--- OUTSIDE RECORDS SUMMARY | 2024-12-29 14:18 | XMS_ITS | Clinical Summary ---
Author Organization [facility] Address [address] [place] [address] Care Team Providers Care Rn Case Mgr Name Role Phone Gi Menezes MD Unavailable [phone] Corrie Howard APRN-[facility] Primary Care Provi randolph Source Comments [facility],non-owned Affiliates and Associated Physician Practices is amultiple site organization consisting of ambulatory clinics and hospital sitesin [place], [place], [place] and [place]. This disclosure is being madepursuant to the Care Everywhere program and may not contain all information available regarding this patient. Last updated 18.[facility] Allergies Active Allergy Reactions Criticality Noted Date [...] Pressure 130/72 03/24/2024 1:21 PM CDT Repeat MJ=731/71 Pulse 59 03/24/2024 1:21 PM CDT Temperature [...] Visit [facility] [address] [facility] [place] [phone] Jose-Bren Feng, FIRE DEPARTMENT BATTALION CHIEF-AUTO INSPECTOR [address] [place] [phone] Health Maintenance Due Date Last Done Comments [...] ENDOSCOPY, COLON, DIAGNOSTIC Routine 10/02/2018 8:35 AM MANAGER CARD LIPID PROFILE Routine 03/19/2013 7:38 AM CDT from Last 3 Months or Most Recently Relevant to Health Maintenance Results * ENDOSCOPY, COLON, DIAGNOSTIC (10/02/2018 8:35 AM MANAGER CARD) Report Endoscopy POC Endoscopy Department Report _ [...] and oxygen saturations were monitored continuously. The [id number] was introduced through the anus and advanced to the terminal ileum, with identification of the appendiceal orifice and IC valve. The colonoscopy was performed with ease. The patient tolerated the procedure well. The quality of the bowel preparation was evaluated using the BBPS ([place] Bowel Preparation Scale) with scores of: Right [...] entire procedure. Procedure Code(s): --- Professional --- 99592, Colonoscopy, flexible; with biopsy, single or multiple Diagnosis Code(s): --- Professional --- Z12.11, Encounter for screening for malignant neoplasm of colon D12.2, Benign neoplasm of ascending colon K64.8, Other hemorrhoids K57.30, Diverticulosis of large intestine without perforation or abscess without bleeding CPT copyright 2016 [employer]. All rights reserved. The codes documented in this report are preliminary and upon pharmacy buyer review may be revised to meet current compliance requirements. ____ Irene Madrigal MD 10/02/2018 9:41:35 AM Note Initiated On: 10/02/2018 8:35 AM Number of Addenda: [address] [address] [facility] 10/02/2018 8:35 AM MANAGER CARD Ted Campbell MD GI PROCEDURE ORDERAB LES [facility] * (ABNORMAL) LIPID PROFILE (03/19/2013 7:38 AM CDT) Cholesterol Total 194 125 - 200 mg/dL [facility] ([facility]) HDL 44(L) > OR = 46 mg/dL [facility] ([facility]) Triglycerides 178(H) <150 mg/dL [facility] ([facility]) LDL Calculated 114 <130 mg/dL (calc) [facility] ([facility]) Comment: Desirable range <100 mg/dL for patients with CHD or diabetes and <70 mg/dL for diabetic patients with known heart disease. Chol/HDL Ratio 4.4 < OR = 5.0 (calc) [facility] ([facility]) Non HDL Cholesterol 150 mg/dL (calc) [facility] ([facility]) Comment: Target for non-HDL cholesterol is 30 mg/dL higher than LDL cholesterol target. Test Performed at: [facility] [id number] [place] [address] DOROTEO EUGENE DO,MPH 03/19/2013 7:38 AM CDT 03/19/2013 7:41 AM CDT Gi Menezes MD LAB - CHEMISTRY ORD ERABLES [facility] ([facility]) from Last 3 Months or Most Recently Relevant to Health Maintenance Care Teams Rn Case Mgr Relationship Specialty Start Date End Date Corrie Howard, FIRE DEPARTMENT BATTALION CHIEF-AUTO INSPECTOR [address] [place], [place] [id number] PCP - General 08/07/21 Gi Menezes MD [address] [place] [address] Obstetrics and Gynecology 04/11/21
--- OUTSIDE RECORDS SUMMARY | 2024-12-29 14:18 | XMS_ITS | Patient Health Summary ---
Author Organization [facility] Address [address] [place] [address] Care Team Providers Care Straddle Bug Operator Name Role Phone Gi Menezes MD Unavailable [phone] Corrie Howard APRN-[facility] Primary Care Provi randolph Note from [facility],non-owned Affiliates and Associated Physician Practices is amultiple site organization consisting of ambulatory clinics and hospital sitesin [place], [place], [place] and [place]. This disclosure is being madepursuant to the Care Everywhere program and may not contain all information available regarding this patient. Last updated 18.[facility] Allergies * Sulfa Drugs(Urticaria,Rash) -Medium Criticality Medications [...] Pressure 130/72 03/24/2024 1:21 PM CDT Repeat ID=[id number]/71 Pulse 59 03/24/2024 1:21 PM CDT Temperature [...] 1.2 % [facility] Comment: Test Performed at: [facility] [employer] [place] [address] DOROTEO EUGENE DO,MPH Blood BLOOD SPECIMEN / Unknown 03/26/2019 7:15 AM CDT 03/26/2019 7:15 AM CDT Irene Madrigal MD LAB - HEMATOLOGY O RDERABLES Performing Organization Address [facility] Co de Phone Number [facility] [address] [place] [address] * HEPATIC FUNCTION PANEL (03/26/2019 7:15 AM [...] 29 U/L [facility] Comment: Test Performed at: [facility] [address] DOROTEO EUGENE DO,MPH Blood BLOOD SPECIMEN / Unknown 03/26/2019 7:15 AM CDT 03/26/2019 7:15 AM CDT Irene Madrigal MD LAB - CHEMISTRY OR DERABLES Performing Organization Address [facility] de Phone Number [facility] [address] [place] [address] * LIPASE BLOOD (03/26/2019 7:15 AM CDT) Lipase 21 7 - 60 U/L [facility] Comment: Test Performed at: [facility] [address] [employer] [address] DOROTEO EUGENE DO,MPH Blood BLOOD SPECIMEN / Unknown 03/26/2019 7:15 AM CDT 03/26/2019 7:15 AM CDT Irene Madrigal MD LAB - CHEMISTRY OR DERABLES Performing Organization Address [facility] Co de Phone Number [facility] [id number] [place] [address] * PATHOLOGY TISSUE (10/02/2018 9:20 AM [facility]) Case Report Surgical Pathology Report Case: [id number] Authorizing Provider: Irene Madrigal MD Collected: 10/02/2018 09:20 AM Ordering Location: [facility] ENDOSCOPY Received: 10/02/2018 09:52 AM Pathologist: Miryam Joseph MD Specimen: Large Intestine, Right/Ascending Colon, ascending colon polyps, bx x2 10/05/2018 11:16 AM [facility] Final Diagnosis Large intestine, ascending colon polyps, biopsy (A): - Tubular adenoma - Hyperplastic polyp 10/05/2018 11:16 AM [facility] Microscopic Description and Comment Microscopic examination substantiates the final diagnosis. 10/05/2018 11:16 AM [facility] Clinical History The patient is a 48-year-old woman who underwent screening colonoscopy. Operative procedure/findings: Colonoscopy -- two diminutive sessile polyps in the ascending colon. 10/05/2018 11:16 AM [facility] Gross Description The requisition and specimen(s) are identified with the patient name, Deni Bone Received in formalin, specimen A, ascending colon polyps, bx x2 , are two fragments of soft, yellow-see tissue measuring 0.4 x 0.3 x 0.2 cm and 0.4 x 0.3 x 0.1 cm. The tissue is entirely submitted in cassette A1. ADH/puma 10/05/2018 11:16 AM [facility] Disclaimer The performance characteristics of all immunohistochemical and indirect immunofluorescence stains (if any) cited in this report were determined by the Histopathology Laboratory of [facility]. Some of these tests were developed by [...] the attending (teaching) pathologist. 10/05/2018 11:16 AM [facility] Embedded Images 10/05/2018 11:16 AM CLERICAL CAR CHECKER [facility] Biopsy, NOS (Large Intestine, Right/Ascending Colon) 10/02/2018 9:20 AM CLERICAL CAR CHECKER 10/02/2018 9:52 AM CLERICAL CAR CHECKER Irene Madrigal MD LAB - PATHOLOGY/ARIADNA NG ORDERABLES [facility] [address] [phone] * ENDOSCOPY, COLON, DIAGNOSTIC (10/02/2018 8:35 AM CLERICAL CAR CHECKER) Report Endoscopy POC Endoscopy Department Report _ [...] and oxygen saturations were monitored continuously. The CF-[id number] was introduced through the anus and advanced to the terminal ileum, with identification of the appendiceal orifice and IC valve. The colonoscopy was performed with ease. The patient tolerated the procedure well. The quality of the bowel preparation was evaluated using the BBPS ([place] Bowel Preparation Scale) with scores of: Right [...] entire procedure. Procedure Code(s): --- Professional --- 23711, Colonoscopy, flexible; with biopsy, single or multiple Diagnosis Code(s): --- Professional --- Z12.11, Encounter for screening for malignant neoplasm of colon D12.2, Benign neoplasm of ascending colon K64.8, Other hemorrhoids K57.30, Diverticulosis of large intestine without perforation or abscess without bleeding CPT copyright 2016 [employer]. All rights reserved. The codes documented in this report are preliminary and upon information coder review may be revised to meet current compliance requirements. ____ Irene Madrigal MD 10/02/2018 9:41:35 AM Note Initiated On: 10/02/2018 8:35 AM Number of Addenda: 0 [facility] [address] [facility] [place] [address] [facility] 10/02/2018 8:35 AM CLERICAL CAR CHECKER Ted Campbell MD GI PROCEDURE ORDERAB LES [facility] * BASIC METABOLIC PANEL (CALCIUM TOTAL) (12/09/2017 4:22 PM CLERICAL CAR CHECKER) BUN 11 7 - 26 mg/dL [facility] Creatinine 0.7 0.6 - 1.2 mg/dL [facility] Sodium 141 136 - 145 mmol/L [facility] Potassium 3.6 3.5 - 4.5 mmol/L [facility] Chloride 105 98 - 107 mmol/L [facility] CO2 26 22 - 29 mmol/L [facility] Glucose 111 70 - 115 mg/dL [facility] Calcium 8.9 8.4 - 10.2 mg/dL [facility] Anion Gap 14 8 - 18 [facility] BUN/Creatinine Ratio 16 7 - 23 [facility] Osmolality Calculated 292 270 - 300 mOsm/kg [facility] eGFR >60 >60 mL/min/1.7 3 m2 [facility] Blood specimen (specimen) BLOOD SPECIMEN / Unknown 12/09/2017 4:22 PM CLERICAL CAR CHECKER 12/09/2017 5:06 PM CLERICAL CAR CHECKER Irene Madrigal MD LAB - CHEMISTRY OR DERABLES Performing Organization Address [facility]/ZIP Co de Phone Number [address] [phone] * (ABNORMAL) URINALYSIS W/MICROSCOPIC NO CULTURE (12/09/2017 4:18 PM CLERICAL CAR CHECKER) Color UA Yellow Straw, Yellow, Colorless, Light Yellow [facility] Clarity UA Clear Clear [facility] Specific [place] UA 1.005 1.001 - 1.030 [facility] pH UA 6.5 5.0 - 8.0 [facility] Protein UA Negative <=20 mg/dL [facility] Glucose UA Negative Negative mg/dL [facility] Ketone UA Negative Negative mg/dL [facility] Bilirubin UA Negative Negative mg/dL [facility] Blood UA Negative Negative [facility] Nitrite UA Negative Negative [facility] Leukocyte Esterase Large(A) Negative [facility] Urobilinogen UA <2.0 <2.0 mg/dL [facility] RBC UA 1 0 - 8 /HPF [facility] WBC UA 6(H) 0 - 2 /HPF [facility] Bacteria UA Rare Rare, Occasional, None /HPF [facility] Squamous Epithelial Cells UA 2(H) 0 - 1 /HPF [facility] Mucus UA Rare(A) None /LPF [facility] Urine specimen (specimen) URINE SPECIMEN OBTAINED BY CLEAN CATCH PROCEDURE / Unknown 12/09/2017 4:18 PM CLERICAL CAR CHECKER 12/09/2017 5:08 PM CLERICAL CAR CHECKER Irene Madrigal MD LAB - URINALYSIS O RDERABLES Performing Organization Address City/[facility]/ZIP Co de Phone Number [address] [phone] * VITAMIN D 25-HYDROXY D2+D3 BY TANDEM MASS (03/19/2013 7:38 AM CDT) Pathologist [facility] Vitamin D, 25 Hydroxy Total 49 30 - 100 ng/mL [facility] ([facility]) Comment: 25-OHD3 indicates both endogenous production and [...] Hydroxy D3 45 See Below ng/mL [facility] ([facility]) Comment:Reference Range: Not established Vitamin D, 25 Hydroxy D2 4 See Below ng/mL [facility] ([facility]) Comment: Reference Range: Not established REPORT COMMENT: FASTING Test Performed at: [facility] [address] [address] JOSH DEAN MD 03/19/2013 7:38 AM CDT 03/19/2013 7:41 AM CDT Gi Menezes MD LAB - CHEMISTRY ORD ERABLES [facility] ([facility]) * COMPREHENSIVE METABOLIC PANEL (03/19/2013 7:38 AM CDT) [facility] Glucose 83 65 - 99 mg/dL [facility] ([facility]) Comment: Fasting reference interval BUN 12 7 - 25 mg/dL [facility] ([facility]) Creatinine 0.83 0.50 - 1.10 mg/dL [facility] ([facility]) eGFR non- 86 > OR = 60 mL/min/1. 73m2 [facility] ([facility]) eGFR 100 > OR = 60 mL/min/1. 73m2 [facility] ([facility]) BUN/Creatinine Ratio NOT APPLICABLE 6 - 22 (calc) [facility] ([facility]) Sodium 138 135 - 146 mmol/L [facility] ([facility]) Potassium 4.4 3.5 - 5.3 mmol/L [facility] ([facility]) Chloride 105 98 - 110 mmol/L [facility] ([facility]) CO2 26 19 - 30 mmol/L [facility] ([facility]) Calcium 9.3 8.6 - 10.2 mg/dL [facility] ([facility]) Protein Total 6.7 6.1 - 8.1 g/dL [facility] ([facility]) Albumin 4.2 3.6 - 5.1 g/dL [facility] ([facility]) Globulin 2.5 1.9 - 3.7 g/dL (calc) [facility] ([facility]) Albumin/Globuli n Ratio 1.7 1.0 - 2.5 (calc) [facility] ([facility]) Bilirubin Total 0.5 0.2 - 1.2 mg/dL [facility] ([facility]) Alkaline Phosphatase 34 33 - 115 U/L [facility] ([facility]) AST 14 10 - 30 U/L [facility] ([facility]) ALT 13 6 - 40 U/L [facility] ([facility]) Comment: Test Performed at: [employer] [address] [place] [address] DOROTEO EUGENE DO,MPH 03/19/2013 7:38 AM CDT 03/19/2013 7:41 AM CDT Gi Menezes MD LAB - CHEMISTRY ORD ERABLES Performing Organization Address [facility] Phone Number [facility] ([facility]) * TSH (03/19/2013 7:38 AM CDT) TSH 2.36 mIU/L [facility] ([facility]) Comment: Reference Range > or = 20 Years 0.40-4.50 Ranges First trimester 0.26-2.66 Second trimester 0.55-2.73 Third trimester 0.43-2.91 Test Performed at: [facility] [place] [address] DOROTEO EUGENE DO,MPH 03/19/2013 7:38 AM CDT 03/19/2013 7:41 AM CDT Gi Menezes MD LAB - CHEMISTRY ORD ERABLES Performing Organization Address [facility] de Phone Number [facility] ([facility]) * T4 FREE (03/19/2013 7:38 AM CDT) T4 Free 1.2 0.8 - 1.8 ng/dL [facility] ([facility]) Comment: The current lot of free T4 reagent available from the wedding day coordinator produces results that are approximately 9% higher than previous reagent lots. Please interpret these results accordingly. Test Performed at: [facility] [address] [place] [address] DOROTEO EUGENE DO,MPH 03/19/2013 7:38 AM CDT 03/19/2013 7:41 AM CDT Gi Menezes MD LAB - CHEMISTRY ORD ERABLES Performing Organization Address [facility] Co de Phone Number [facility] ([facility]) * (ABNORMAL) LIPID PROFILE (03/19/2013 7:38 AM CDT) Cholesterol Total 194 125 - 200 mg/dL [facility] ([facility]) HDL 44(L) > OR = 46 mg/dL [facility] ([facility]) Triglycerides 178(H) <150 mg/dL [facility] ([facility]) LDL Calculated 114 <130 mg/dL (calc) [facility] ([facility]) Comment: Desirable range <100 mg/dL for patients with CHD or diabetes and <70 mg/dL for diabetic patients with known heart disease. Chol/HDL Ratio 4.4 < OR = 5.0 (calc) [facility] ([facility]) Non HDL Cholesterol 150 mg/dL (calc) [facility] ([facility]) Comment: Target for non-HDL cholesterol is 30 mg/dL higher than LDL cholesterol target. Test Performed at: [facility] [address] [place] [address] DOROTEO EUGENE DO,MPH 03/19/2013 7:38 AM CDT 03/19/2013 7:41 AM CDT Gi Menezes MD LAB - CHEMISTRY ORD ERABLES Performing Organization Address [facility] Co de Phone Number [facility] ([facility]) * PATHOLOGY TISSUE FOR DERMATOLOGY (02/23/2013 12:00 AM CDT) Result CASE: [id number] PATIENT: DENI BONE PATHOLOGIC DIAGNOSIS: A. Left [...] specimen consists of a punch biopsy measuring 0s5m1bc. Jar 0. B: Received is one formalin [...] Gini Johnson M.D. Electronically signed 02/25/2013 5:10:42PM [facility] Comment: Performed at: Dermatopathology Laboratory [facility] - Department of Dermatology [facility] [facility], [address] [place] [address] Phone number: [phone] Toll Free: [phone] FAX: [phone] 02/23/2013 02/24/2013 Historical Provider LAB - PATHOLOGY/C YTOLOGY ORDERABLES [facility] [address] [place] [address], [facility] [phone] Care Teams Straddle Bug Operator Relationship Specialty Start Date End Date Corrie Howard APRN-MARKET GARDENER [address] [place] [address] PCP - General 08/07/21 Gi Menezes MD [address] [place] [address] Obstetrics and Gynecology 04/11/21
--- OUTSIDE RECORDS SUMMARY | 2024-12-29 14:18 | XMS_ITS | Continuity of Care Document ---
Author Organization [facility] Address [address] [place] [address] [place] [address] Phone Care Team Providers Care Director Of Physical Therapy Name Role Phone Nicanor Lopez MD Unavailable Unavailable Allergies, Adverse Reactions, Alerts Substance Reaction Status Criticality No Known Allergies Active No Inform ation Procedures Procedure Date OFFICE/OUTPATIENT VISIT, EST OFFICE/OUTPATIENT VISIT, EST OFFICE/OUTPATIENT VISIT, [facility] Advance Directives Directive Yes / No Effective Date File Name No Information Encounters Encounter Description Practice Location Reason(s) For Visit Diagnoses Date Provider Providers Copied on Encounter [facility], [address], [place], [place], [id number], [place] tel:[phone] [facility] No Information [address], [address], [id number] , [place]. tel:[phone] Referring Provider: Pierre Kate [place] [facility] A, [place], [place], [id number]. tel:[phone] OFFICE/OUTPA TIENT VISIT, EST [facility], [address], [place], [place], [id number], [place] tel:[phone] [facility] palpitation (chief complaint)ba ck pain (chief complaint)ab dominal pain (chief complaint)kn ee pain (chief complaint) PalpitationsLumba goOther specified disorders of gallbladderPain in joint involving lower leg [address], [place], [place], [id number] , [place]. tel:[phone] Referring Provider: Pierre [address], [place], [place], [id number]. tel:[phone] OFFICE/OUTPA TIENT VISIT, [facility], [place], [address] [place], [place], [id number], [place] tel:[phone] [facility] back pain (chief complaint)kn ee pain (chief complaint)GI referal (chief complaint) Dietary surveillance and counselingAbdomin al PainLumbagoPain in joint involving lower leg [address] [facility] [address], [place], [place], [address] , [place]. tel:[phone] Referring Provider: Pierre Kate [place] [facility], [place], [place], [id number]. tel:[phone] OFFICE/OUTPA TIENT VISIT, [facility], [address] [place], [place], [id number], [place] tel:[phone] [facility] palpitation (chief complaint)di veticulitis (chief complaint)martinez nd pain (chief complaint)sc apular pain (chief complaint)po addison IV (chief complaint) PalpitationsConta ct dermatitis and other eczema due to plants (except food)LumbagoDiver ticulitis of colon (without mention of hemorrhage) [address] [facility] [place], [place], [id number] , [place]. tel:[phone] Family History Family Member Type Diagnosis Age [...] US EXAM, ABDOM, COMPLETE ordered Referral Ordered: Cardiology (related to Palpitations) ordered Referral Ordered: Physical Therapy (related to Lumbago) ordered Referral Ordered: HAND XRAY, TWO VIEW ordered Referral Ordered: Referral: Cardiology. Evaluate and treat. ordered Referral Referred To: Physical Therapy Ordered: Referral: Physical Therapy. ordered History Of Present Illness Encounter Date Complaint History Of Prese nt Illness No Information Instructions Date Instruction Additional Infor dave Dietary counseling Related to Di etary surveillance counseling Decrease caloric intake Related to Dietary surveillance counseling Assessments Type Assessment Date No Information
--- OUTSIDE RECORDS SUMMARY | 2024-12-29 14:18 | XMS_ITS | Clinical Summary ---
Author Organization [facility] Address [address] [place] [address] Care Team Providers Care Barrel Rifler Broach Name Role Phone Pema Hernández MD Primary [...] Type Department Care Team Description 12/29/2024 Telephone [facility] Family Medicine - Elías [address] [facility] [address] [place] [address] Pema Hernández MD Back Pain [...] 02/28/2021 Mammogram Screening 10/14/2024 10/14/2022 PHQ-2 (Physician [place]) 11/17/2024 09/02/2024 DTaP, Tdap and Td Vaccines [...] Most Recently Relevant to Health Maintenance Insurance [facility] Care Teams Barrel Rifler Broach Relationship Specialty Start Date End Date [place], Pema A, MD [address] [phone] PCP - General FAMILY PRACTICE 12/29/24
--- OUTSIDE RECORDS SUMMARY | 2024-12-29 14:18 | XMS_ITS | Encounter Summary ---
Author Organization [facility] Address [facility] [place] [address] Care Team Providers Care Rigging Man Name Role Phone Corrie Howard NP Primary Care Provider [phone] Pema Hernández MD Primary Care Provider + Encounter Details Date Type Department Care Team (Late st Contact Info) Description 06/19/2023 PrivateMarketst Message Enc [facility] Family Medicine - [place] [address] [place], [place] [id number] Corrie Howard NP [address] [place] [address] Question regarding HERPES SIMPLEX VIRUS IGG Social [...] documented as of this encounter Care Teams Rigging Man Relationship Specialty Start Date End Date Corrie Howard NP [address] [place] [address] PCP - General NURSE PRACTITIONER 02/27/21 12/28/24 Pema Hernández MD [address] [place] [address] PCP - General FAMILY PRACTICE 12/29/24 documented as of this encounter
--- OUTSIDE RECORDS SUMMARY | 2024-12-29 14:18 | XMS_ITS | Referral Summary ---
Author Organization [facility] [employer] Address [address] [place] [address] Care Team Providers Care Radio Adjuster Name Role Phone Gi Menezes MD Unavailable [phone] Corrie Howard APRN-[facility] Primary Care Provi randolph Source Comments [facility] [employer],non-owned Affiliates and Associated Physician Practices is amultiple site organization consisting of ambulatory clinics and hospital sitesin [place] and [place]. This disclosure is being madepursuant to the Care Everywhere program and may not contain all information available regarding this patient. Last updated 18.[facility] [employer] Allergies Active Allergy Reactions Criticality Noted Date [...] Pressure 130/72 03/24/2024 1:21 PM CDT Repeat PW=994/71 Pulse 59 03/24/2024 1:21 PM CDT Temperature [...] Visit [facility] - [facility] [address] [place] [phone] JocelynghislaineCarolynnBren Feng, [employer] OPERATOR-EPIDEMIOLOGY INVESTIGATOR [address] [place] [id number] Goals Goal Patient Goal Type Associated Problems [...] ENDOSCOPY, COLON, DIAGNOSTIC Routine 10/02/2018 8:35 AM CHECKER PRODUCT DESIGN LIPID PROFILE Routine 03/19/2013 7:38 AM CDT from Last 3 Months or Most Recently Relevant to Health Maintenance Results * ENDOSCOPY, COLON, DIAGNOSTIC (10/02/2018 8:35 AM CHECKER PRODUCT DESIGN) Report Endoscopy POC Endoscopy Department Report _ [...] and oxygen saturations were monitored continuously. The [id number] was introduced through the anus and advanced to the terminal ileum, with identification of the appendiceal orifice and IC valve. The colonoscopy was performed with ease. The patient tolerated the procedure well. The quality of the bowel preparation was evaluated using the BBPS ([place] Bowel Preparation Scale) with scores of: Right [...] entire procedure. Procedure Code(s): --- Professional --- 13999, Colonoscopy, flexible; with biopsy, single or multiple Diagnosis Code(s): --- Professional --- Z12.11, Encounter for screening for malignant neoplasm of colon D12.2, Benign neoplasm of ascending colon K64.8, Other hemorrhoids K57.30, Diverticulosis of large intestine without perforation or abscess without bleeding CPT copyright 2016 [employer]. All rights reserved. The codes documented in this report are preliminary and upon braille coder review may be revised to meet current compliance requirements. ____ Irene Madrigal MD 10/02/2018 9:41:35 AM Note Initiated On: 10/02/2018 8:35 AM Number of Addenda: [address] [address] [facility] 10/02/2018 8:35 AM CHECKER PRODUCT DESIGN Ted Campbell MD GI PROCEDURE ORDERAB LES Performing Organization Address City/State/[facility] Co de Phone Number [facility] * (ABNORMAL) LIPID PROFILE (03/19/2013 7:38 AM CDT) Cholesterol Total 194 125 - 200 mg/dL [facility] HDL 44(L) > OR = 46 mg/dL [facility] Triglycerides 178(H) <150 mg/dL [facility] LDL Calculated 114 <130 mg/dL (calc) [facility] Comment: Desirable range <100 mg/dL for patients with CHD or diabetes and <70 mg/dL for diabetic patients with known heart disease. Chol/HDL Ratio 4.4 < OR = 5.0 (calc) [facility] Non HDL Cholesterol 150 mg/dL (calc) [facility] Comment: Target for non-HDL cholesterol is 30 mg/dL higher than LDL cholesterol target. Test Performed at: [facility] [address] [place] [address] DOROTEO EUGENE DO,MPH 03/19/2013 7:38 AM CDT 03/19/2013 7:41 AM CDT Gi Menezes MD LAB - CHEMISTRY ORD ERABLES Performing Organization Address City/[facility] Co de Phone Number [facility]) from Last 3 Months or Most Recently Relevant to Health Maintenance Care Teams Radio Adjuster Relationship Specialty Start Date End Date Corrie Howard, [employer] OPERATOR-EPIDEMIOLOGY INVESTIGATOR [address] [place] [address] PCP - General 08/07/21 Gi Menezes MD [address] [place] [address] Obstetrics and Gynecology 04/11/21
--- OUTSIDE RECORDS SUMMARY | 2024-12-29 14:18 | XMS_ITS | Encounter Summary ---
Author Organization [facility] Address [facility] [place] [address] Care Team Providers Care Electrical And Electronic Assembler Name Role Phone Pema Hernández MD Primary Care Provider + Reason for Visit * Reason Onset Date Comments Back Pain 12/29/2024 Encounter Details Date Type Department Care Team (Late st Contact Info) Description 12/29/2024 Telephone [facility] Family Medicine - [place] [address] [place] [id number] Pema Hernández MD [address] [place] [id number] Back Pain Social History Tobacco Use Types [...] - 12/29/2024 11:51 AM CST Agreed! Thanks! ROUNDING MACHINE OPERATOR * Melanie Singh MA - 12/29/2024 11:13 AM CST Patient called in with c/o sudden onset of mid to upper right sided back pain followed by shortnessof breath and tightness in the chest. Started this morning. She is currently on her way to [facility]. I advised to follow up after visit. She did have her labs done at [facility] this morning ROUNDING MACHINE OPERATOR documented in this encounter Plan of Treatment Not on file documented as of this encounter Visit Diagnoses Not on filedocumented in this encounter Additional Health Concerns Assessment Noted Time PHQ-9 Depression Total Score: 0 09/18/20 23 10:06 AM CDT documented as of this encounter Care Teams Electrical And Electronic Assembler Relationship Specialty Start Date End Date Pema Hernández MD [address] [place] [address] PCP - General FAMILY PRACTICE 12/29/24 documented as of this encounter
[2024-12-29 15:18] VITALS: BP 143/70; PULSE 66; RESP 16; O2SAT 100
[2024-12-29] MEDS: KETOROLAC 30 MG/ML VIAL (*BKC) IM (15:52)
[2024-12-29 17:30] VITALS: BP 112/72; PULSE 70; RESP 18; TEMP 36.4; O2SAT 99
== END 2024-12-29 17:30 | disposition home or self-care (01) ==
PROVIDERS: Emergency Provider Emergency Medicine; PCP Nurse Practitioner
DX: M79.18 Myalgia, other site (principal)
CPT/HCPCS: 36415; 74176; 80053; 81003; 81025; 85025; 96372; 99284; J1885

== ENCOUNTER 2025-11-03 10:53 | Outpatient (CLI) | payer BC, SELFPAY ==
--- NOTE | ~2025-11-03 | MM_ITS ---
EXAMINATION: MM screening [facility] BI w [facility] HISTORY: Screening TECHNIQUE: Craniocaudal and mediolateral oblique 3-D tomosynthesis images were obtained and synthetic 2-D images were generated. CAD analysis was submitted and interpreted. COMPARISON: Comparison to multiple prior studies sequentially, with oldest reviewed study dated 04/27/2019. BREAST PARENCHYMAL COMPOSITION: Not dense: There are scattered areas of fibroglandular density. FINDINGS: There is no evidence of suspicious mass, calcification, or architectural distortion to suggest malignancy in either breast. There has been no suspicious interval change. IMPRESSION: 1. No mammographic evidence of malignancy. 2. Recommend routine screening mammography in one year. BI-RADS Category 1: Negative Reviewed, dictated and finalized at location O. ATE DETECTIVE
== END 2025-11-03 10:54 | disposition home or self-care (01) ==
PROVIDERS: PCP Student in an Organized Health Care Education/Training Program
DX: Z12.31 Encounter for screening mammogram for malignant neoplasm of breast (principal)
CPT/HCPCS: 77063; 77067